=== PATIENT | female | born 1960 | race American Indian/Alaskan Native ===

== ENCOUNTER 2021-01-23 23:41 | Inpatient (IN) | payer SELFPAY ==
[2021-01-24 01:21] LABS: Basophils % (Auto) 0.1 % (0.0-1.8); Hematocrit 43.1 % (30.3-42.9); Hemoglobin 13.7 gm/dl (10.1-14.3); Lymphocytes % (Auto) 8.9 % (13.4-35.0); Mean Corpuscular HGB Conc 32 % (30-34); Mean Corpuscular Volume 101 fl (79-97); Monocytes # (Auto) 0.8 K/mm3 (0.0-0.8); Monocytes % (Auto) 6.7 % (0.0-7.3); Platelet Count 315 K/mm3 (140-440); Red Blood Count 4.27 M/mm3 (3.65-5.03); Red Cell Distribution Width 19.5 % (13.2-15.2)
[2021-01-24] MEDS ORDERED: ONDANSETRON 4 MG/2 ML INJ IV ONE (01:37)
[2021-01-24] MEDS ORDERED: SODIUM CHLORIDE 0.9% 500 ML 500 ML IV ONE (01:37)
[2021-01-24 01:38] LABS: Albumin 4.6 g/dL (3.9-5); Calcium 11.2 mg/dL (8.4-10.2)
--- NOTE | 2021-01-24 01:38 | Emergency Department Report ---
ED N/V/D HPI - General Chief complaint: Nausea/Vomiting/Diarrhea Stated complaint: DRY HEAVING PUI?: No Time Seen by Provider: 01/24/21 01:17 Source: patient Mode of arrival: Ambulatory Limitations: No Limitations - History of Present Illness Initial comments: Patient is a 60-year-old female presents emergency room with complaints of nausea vomiting and dry heaves. Patient states is been going on for 3 weeks. Patient states she is having difficulty holding down food. Patient states she tolerates water. Patient denies abdominal pain. Patient denies blood in her vomitus. Patient denies diarrhea. Patient denies constipation. Patient denies fever and chills. Patient denies chest pain and shortness of breath. Patient states she has not seen her primary care for this. Patient states she has not seen another ER for this. Patient dates she has not gone to urgent care for this. Patient denies recent travel. Patient denies recent international travel. Patient denies exposure to the novel coronavirus. Patient denies sick contacts. Patient denies fever and chills. Patient denies cough. Patient denies diar peterson. Patient denies coming in contact with anybody with symptoms of the novel coronavirus. complaint: nausea, vomiting -: Gradual, week(s) - Related Data Allergies Allergy/AdvReac Type Severity Reaction Status Date / Time codeine Allergy Unknown Verified 01/24/21 00:01 ED Review of Systems ROS: Stated complaint: DRY HEAVING Other details as noted in HPI Constitutional: denies: chills, fever Eyes: denies: eye pain, eye discharge, vision change ENT: denies: ear pain, throat pain Respiratory: denies: cough, shortness of breath, wheezing Cardiovascular: denies: chest pain, palpitations Endocrine: no symptoms reported Gastrointestinal: as per HPI, nausea, vomiting. denies: abdominal pain, diarrhea Genitourinary: denies: urgency, dysuria, discharge Musculoskeletal: denies: back pain, joint swelling, arthralgia Skin: denies: rash, lesions Neurological: denies: headache, weakness, paresthesias Psychiatric: denies: anxiety, depression Hematological/Lymphatic: denies: easy bleeding, easy bruising ED Past Medical Hx - Past Medical History Previous Medical History?: Yes Hx Hypertension: Yes Hx Diabetes: Yes - Surgical History Past Surgical History?: Yes - Family History Family history: no significant - Social History Smoking Status: Never Smoker Substance Use Type: None ED Physical Exam - General Limitations: No Limitations General appearance: alert, in no apparent distress - Head Head exam: Present: atraumatic, normocephalic - Eye Eye exam: Present: normal appearance - ENT ENT exam: Present: mucous membranes moist - Neck Neck exam: Present: normal inspection - Respiratory Respiratory exam: Present: normal lung sounds bilaterally. Absent: respiratory distress - Cardiovascular Cardiovascular Exam: Present: regular rate, normal rhythm. Absent: systolic murmur, diastolic murmur, rubs, gallop - GI/Abdominal GI/Abdominal exam: Present: soft, normal bowel sounds - Extremities Exam Extremities exam: Present: normal inspection - Back Exam Back exam: Present: normal inspection - Neurological Exam Neurological exam: Present: alert, oriented X3 - Psychiatric Psychiatric exam: Present: normal affect, normal mood - Skin Skin exam: Present: warm, dry, intact, normal color. Absent: rash ED Course Vital Signs 01/24/21 01/24/21 01/24/21 01:50 02:01 02:15 Blood Pressure 134/91 134/91 134/91 O2 Sat by Pulse 99 98 100 Oximetry 01/24/21 01/24/21 01/24/21 02:31 02:45 03:01 Blood Pressure 122/83 122/83 128/84 O2 Sat by Pulse 100 100 100 Oximetry 01/24/21 01/24/21 01/24/21 03:15 03:31 03:45 Blood Pressure 128/84 O2 Sat by Pulse 100 98 99 Oximetry 01/24/21 01/24/21 01/24/21 04:01 04:15 04:31 Blood Pressure 128/84 128/84 O2 Sat by Pulse 99 99 99 Oximetry - Reevaluation(s) Reevaluation #1: I discussed all results with patient. I discussed plan of care with patient. Patient agrees with plan of care and admission. Patient to be admitted to the hospitalist service. 01/24/21 02:46 - Consultations Consultation #1: Hospitalist consulted for admission. Hospitalist to admit patient. 01/24/21 02:46 ED Medical Decision Making - Lab Data Result diagrams: 01/24/21 01:02 01/24/21 01:02 - Radiology Data Radiology results: report reviewed CT ABDOMEN AND PELVIS WITHOUT CONTRAST HISTORY: n/v. uti. arf. COMPARISON: None. TECHNIQUE: CT images of the abdomen and pelvis were obtained without administration of intravenous contrast. All CT scans at this location are performed using CT dose reduction for ALARA by means of automated exposure control. FINDINGS: Lungs/bones: Lung bases are clear Abdomen/pelvis: Within limits of a noncontrast examination the liver, spleen, adrenal glands, and upper GI tract appear normal. Postsurgical change and upper GI tract. Small hypodense lesion is seen within the uncinate process of the pancreas measuring 1.7 cm. No pancreatic ductal dilatation. There is a lipoma within the region of the duodenum. Gallbladder appears normal. No definite renal stones are seen. No hydronephrosis. There is mild urinary bladder wall thickening and minimal inflammation in the fundus of the bladder. No free fluid is identified. No acute bone findings are seen. IMPRESSION: 1. No renal or ureteral stones are seen. No hydronephrosis. There is some bladder wall thickening with mild inflammation near the fundus could represent cystitis. Clinical correlation. 2. Hypodense lesion within the pancreatic head/uncinate process measuring 1.7 cm. Further evaluation workup is recommended. 3. Possible lipoma within the distal stomach/duodenal. Postsurgical changes in the upper GI tract. - Medical Decision Making Patient is a 60-year-old female who presents emergency room with complaints of nausea vomiting x3 weeks. Patient unable to hold any food down for 3 weeks and have difficulties with adequate water intake per the patient. Patient had labs done which were remarkable for acute renal failure. Patient has metabolic acidosis. Patient is not in DKA. Patient given IV fluids. Patient given Zofran. CT done because the patient was found to have a UTI and kidney failure. CT shows acute cystitis. Patient admitted to the hospital service for further evaluation and treatment. Patient requires inpatient treatment with a nephrology consult. Critical care time documented due to the multiple reassessments, prolonged time at the bedside, interpretation of diagnostics and labs. - Differential Diagnosis Nausea vomiting, dehydration, electrolyte imbalance, gastroenteritis Critical Care Time: Yes Critical care time in (mins) excluding proc time.: 35 Critical care attestation.: If time is entered above; I have spent that time in minutes in the direct care of this critically ill patient, excluding procedure time. Critical Care Time: 35 minutes ED Disposition Clinical Impression: Acute renal failure Qualifiers: Acute renal failure type: unspecified Qualified Code(s): N17.9 - Acute kidney failure, unspecified Nausea & vomiting Qualifiers: Vomiting type: unspecified Vomiting Intractability: intractable Qualified Code(s): R11.2 - Nausea with vomiting, unspecified Urinary tract infection Qualifiers: Urinary tract infection type: acute cystitis Hematuria presence: with hematuria Qualified Code(s): N30.01 - Acute cystitis with hematuria Disposition: ADMITTED INPATIENT Is pt being admited?: Yes Does the pt Need Aspirin: No Condition: Critical Time of Disposition: 02:45
[2021-01-24] MEDS ORDERED: SODIUM CHLORIDE 0.9% 1000 ML 1,000 ML IV ONE ×2 (01:42→05:04)
[2021-01-24 01:50] LABS: Bilirubin,Urine NEG (Negative); Blood,Urine NEG (Negative); Color,Urine Yellow (Yellow); Urobilinogen,Urine < 2.0 mg/dL (<2.0)
[2021-01-24] MEDS ORDERED: cefTRIAXone/NS 2 GM/100 ML 2 GM/100 ML BAG IV ONE (03:00)
--- NOTE | 2021-01-24 03:42 | Cat Scan Report ---
CT ABDOMEN AND PELVIS WITHOUT CONTRAST HISTORY: n/v. uti. arf. COMPARISON: None. TECHNIQUE: CT images of the abdomen and pelvis were obtained without administration of intravenous co ntrast. All CT scans at this location are performed using CT dose reduction for ALARA by means of au tomated exposure control. FINDINGS: Lungs/bones: Lung bases are clear Abdomen/pelvis: Within limits of a noncontrast examination the liver, spleen, adrenal glands, and up per GI tract appear normal. Postsurgical change and upper GI tract. Small hypodense lesion is seen wi thin the uncinate process of the pancreas measuring 1.7 cm. No pancreatic ductal dilatation. There is a lipoma within the region of the duodenum. Gallbladder appears normal. No definite renal stones are seen. No hydronephrosis. There is mild urinary bladder wall thickening and minimal inflammation in t he fundus of the bladder. No free fluid is identified. No acute bone findings are seen. IMPRESSION: 1. No renal or ureteral stones are seen. No hydronephrosis. There is some bladder wall thickening wit h mild inflammation near the fundus could represent cystitis. Clinical correlation. 2. Hypodense lesion within the pancreatic head/uncinate process measuring 1.7 cm. Further evaluation workup is recommended. 3. Possible lipoma within the distal stomach/duodenal. Postsurgical changes in the upper GI tract. Signer Name: James Brink MD Signed: 01/24/2021 3:37 AM Workstation Name: [id number]
[2021-01-24] MEDS ORDERED: ACETAMINOPHEN 325 MG TAB PO PRN (09:02)
[2021-01-24] MEDS ORDERED: HYDROcodone/ACETAMINOPHEN 5-325 MG TAB PO PRN (09:02)
--- NOTE | 2021-01-24 09:05 | History and Physical Report ---
History of Present Illness Date of examination: 01/24/21 Date of admission: 01/24/21 02:47 Chief complaint: N/V History of present illness: Patient is a 60-year-old female with h/o HTN, DM type presents emergency room with complaints of nausea vomiting and dry heaves has been going on for 3 weeks. Patient states that she is having difficulty holding down food but she can tolerates water. Patient denies abdominal pain. Patient denies bloody vomitus, diarrhea, fever and chills. Patient also denies chest pain and shortness of breath. Patient states that she is fully vaccinated against Covid. CT abdomen in the ER showed possible pancreatic head lesion, patient initiated on IV fluid hydration and admitted for further evaluation and management. Review of System: Constitutional: no fever, no chills, no weight loss Ears, eyes, nose, mouth and throat: no nasal congestion, no nasal discharge, no sinus pressure, no vision change, no red eye. Neck: No neck pain or rigidity. Cardiovascular: No chest pain, no orthopnea, no palpitations, no leg swelling Respiratory: No shortness of breath, no cough, no congestion, no wheezing Gastrointestinal: no abdominal pain, +ve nausea, +ve vomiting Genitourinary : no dysuria, no hematuria Musculoskeletal: no joint swelling or muscle ache Integumentary: no rash, no pruritis Neurological: no parathesias, no numbness, no tingling Endocrine: no cold or heat intolerance, no polyuria or polydipsia Hematologic/Lymphatic: no easy bruising, no easy bleeding, no gland swelling Allergic/Immunologic: no urticaria, no angioedema. Past History Past Medical History: diabetes, hypertension Past Surgical History: Other (Bariatric surgery) Social history: denies: smoking, alcohol abuse Family history: hypertension Medications and Allergies Allergies Allergy/AdvReac Type Severity Reaction Status Date / Time codeine Allergy Unknown Verified 01/24/21 00:01 Penicillins Allergy Nausea Verified 01/24/21 07:55 Home Medications Medication Instructions Recorded Confirmed Last Taken Type AtorvaSTATin [Lipitor] 20 mg PO QHS 01/24/21 01/24/21 01/23/21 History Lisinopril/Hydrochlorothiazide 1 tab PO QDAY 01/24/21 01/24/21 01/23/21 History [Zestoretic 20-25 mg] Pioglitazone [Actos] 15 mg PO QDAY 01/24/21 01/24/21 01/23/21 History Valacyclovir HCl [Valacyclovir] 1,000 mg PO BID 01/24/21 01/24/21 01/23/21 History buPROPion XL [Wellbutrin Xl] 300 mg PO QDAY 01/24/21 01/24/21 01/23/21 History glipiZIDE [Glucotrol] 10 mg PO AC 01/24/21 01/24/21 01/23/21 History Active Meds: Active Medications Acetaminophen (Acetaminophen 325 Mg Tab) 650 mg PO Q4H PRN PRN Reason: Pain MILD(1-3)/Fever >100.5/YEH Hydrocodone Bitart/Acetaminophen (Hydrocodone/Acetaminophen 5-325 Mg Tab) 2 each PO Q6H PRN PRN Reason: Pain, Moderate (4-6) Famotidine (Famotidine 10 Mg Tab) 10 mg PO QDAY NICHOLAS Heparin Sodium (Porcine) (Heparin 5,000 Unit/1 Ml Vial) 5,000 unit SUB-Q Q8HR NICHOLAS Hydralazine HCl (Hydralazine 20 Mg/1 Ml Inj) 5 mg IV Q30MIN PRN PRN Reason: Hypertension Sodium Chloride (Nacl 0.9% 1000 Ml) 1,000 mls @ 100 mls/hr IV DIRECT NICHOLAS Ondansetron HCl (Ondansetron 4 Mg/2 Ml Inj) 4 mg IV Q8H PRN PRN Reason: N/V unrelieved by Reglan Sodium Polystyrene Sulfonate (Sodium Polystyrene 15 Gm/60 Ml Oral Liqd) 30 gm PO ONCE ONE Stop: 01/24/21 09:03 Exam - Physical Exam Narrative exam: GENERAL: well-developed and well-nourished morbidly obese -[place] female lying on bed appeared to be in no discomfort. HEENT: Normocephalic. Atraumatic. No conjunctival congestion or icterus. Patient has moist mucous membranes. NECK: Supple. Trachea midline. CHEST/LUNGS: Clear to auscultated bilaterally, breathing nonlabored. No wheezes crackles or rhonchi. HEART/CARDIOVASCULAR: Regular in rate and rhythm. S1 and S2 positive. ABDOMEN: Abdomen is soft, nontender. Patient has normal bowel sounds. SKIN: There is no rash. Warm and dry. NEURO: No focal motor deficit. Follows command. MUSCULOSKELETAL: No joint effusion or tenderness. EXTRIMITY: No edema, no cyanosis or clubbing. PSYCH: Cooperative. - Constitutional Vitals: Temp Pulse Resp BP Pulse Ox 98.6 F 93 H 15 123/82 100 01/24/21 07:49 01/24/21 07:45 01/24/21 07:45 01/24/21 07:45 01/24/21 07:56 Results - Labs CBC & Chem 7: 01/24/21 01:02 01/25/21 07:14 Labs: Abnormal lab results 01/24/21 01/24/21 01/24/21 Range/Units 01:02 01:02 Unknown WBC 11.7 H (4.5-11.0) K/mm3 Hct 43.1 H (30.3-42.9) % MCV 101 H (79-97) fl RDW 19.5 H (13.2-15.2) % Lymph % (Auto) 8.9 L (13.4-35.0) % Lymph # (Auto) 1.0 L (1.2-5.4) K/mm3 Seg Neutrophils % 84.3 H (40.0-70.0) % Seg Neutrophils # 9.8 H (1.8-7.7) K/mm3 Potassium 5.2 H (3.6-5.0) mmol/L Carbon Dioxide 17 L (22-30) mmol/L BUN 59 H (7-17) mg/dL Creatinine 4.3 H (0.6-1.2) mg/dL Glucose 222 H (65-100) mg/dL Calcium 11.2 H (8.4-10.2) mg/dL Total Protein 8.3 H (6.3-8.2) g/dL Lipase 68 H (13-60) units/L Urine WBC (Auto) 14.0 H (0.0-6.0) /HPF U Epithel Cells (Auto) 28.0 H (0-13.0) /HPF - Imaging and Cardiology CT scan - abdomen: report reviewed (Positive for pancreatic head lesion) Assessment and Plan Intractable nausea and vomiting Pancreatic head lesion/ mass Leukocytosis with sepsis Urinary tract infection KYLE, vasomotor nephropathy hyperkalemia Morbid obesity, due to excess calorie DVT prophylaxis --Admit patient to [facility] --Placed on IV fluid hydration, monitor renal function, order for Kayexalate -Consult nephrology, ordered morning labs --Consult GI for possible pancreatic head lesion -As needed pain meds and antiemetics -Dietary recommendation --Heparin for DVT prophylaxis
[2021-01-24] MEDS ORDERED: hydrALAZINE 20 MG/1 ML INJ IV PRN (09:11)
[2021-01-24] MEDS ORDERED: FAMOTIDINE 10 MG TAB PO SCH (10:00)
[2021-01-24] MEDS ORDERED: SODIUM POLYSTYRENE 15 GM/60 ML ORAL LIQD PO ONE (10:00)
[2021-01-24] MEDS ORDERED: SODIUM CHLORIDE 0.9% 1000 ML 1,000 ML IV SCH (10:00)
[2021-01-24] MEDS: ONDANSETRON 4 MG/2 ML INJ IV PRN ×2 (10:28→18:44)
--- NOTE | 2021-01-24 13:13 | Consultation ---
History of Present Illness - Reason for Consult Consult date: 01/24/21 acute renal failure, hyperkalemia, metabolic acidosis - History of Present Illness The patient is a 60 YO female with history significant for Morbid Obesity, HTN and DM who presented to [facility] ED 01/24 with complaints of nausea, vomiting and dry heaves for the past 3 weeks. Patient states that she is having difficulty holding down food but she can tolerate water. Patient denies abdominal pain, diarrhea, hemetemesis, fever, chills, dysuria, hematuria, chest pain and shortness of breath. Patient states that she is fully vaccinated against Covid- 19. Labs significant for Creat 4.3, BUN 59, K 5.2, bicarb 17 and Calcium 11.2. Nephrology was consulted for further evaluation and treatment of KYLE. Past History Past Medical History: other (See HPI.) Medications and Allergies Allergies Allergy/AdvReac Type Severity Reaction Status Date / Time codeine Allergy Unknown Verified 01/24/21 00:01 Penicillins Allergy Nausea Verified 01/24/21 07:55 Home Medications Medication Instructions Recorded Confirmed Last Taken Type AtorvaSTATin [Lipitor] 20 mg PO QHS 01/24/21 01/24/21 01/23/21 History Lisinopril/Hydrochlorothiazide 1 tab PO QDAY 01/24/21 01/24/21 01/23/21 History [Zestoretic 20-25 mg] Pioglitazone [Actos] 15 mg PO QDAY 01/24/21 01/24/21 01/23/21 History Valacyclovir HCl [Valacyclovir] 1,000 mg PO BID 01/24/21 01/24/21 01/23/21 History buPROPion XL [Wellbutrin Xl] 300 mg PO QDAY 01/24/21 01/24/21 01/23/21 History glipiZIDE [Glucotrol] 10 mg PO AC 01/24/21 01/24/21 01/23/21 History Active Meds: Active Medications Acetaminophen (Acetaminophen 325 Mg Tab) 650 mg PO Q4H PRN PRN Reason: Pain MILD(1-3)/Fever >100.5/YEH Hydrocodone Bitart/Acetaminophen (Hydrocodone/Acetaminophen 5-325 Mg Tab) 2 each PO Q6H PRN PRN Reason: Pain, Moderate (4-6) Famotidine (Famotidine 10 Mg Tab) 10 mg PO QDAY [facility] Last Admin: 01/24/21 10:28 Dose: 10 mg Documented by: Heparin Sodium (Porcine) (Heparin 5,000 Unit/1 Ml Vial) 5,000 unit SUB-Q Q8HR [facility] Hydralazine HCl (Hydralazine 20 Mg/1 Ml Inj) 5 mg IV Q30MIN PRN PRN Reason: Hypertension Sodium Chloride (Nacl 0.9% 1000 Ml) 1,000 mls @ 100 mls/hr IV DIRECT NICHOLAS Last Admin: 01/24/21 10: Dose: 100 mls/hr Documented by: Ondansetron HCl (Ondansetron 4 Mg/2 Ml Inj) 4 mg IV Q8H PRN PRN Reason: Nausea And Vomiting Last Admin: 01/24/21 10: Dose: 4 mg Documented by: Review of Systems All systems: negative Exam - Vital Signs Vital signs: Vital Signs BP Pulse Ox 134/91 99 01/24/21 01:50 01/24/21 01:50 Results - Lab Results 01/24/21 01:02 01/25/21 07:14 Most recent lab results Calcium 11.2 mg/dL (8.4-10.2) H 01/24/21 01:02 Assessment and Plan 1. Acute kidney injury: Vasomotor KYLE in the setting of volume depletion. Urine studies and Renal US ordered. Continue IV fluids. Monitor renal function. Avoid nephrotoxic agents. Meds dosage based on GFR. 2. FEN: Hypernatremia, Kayexalate, monitor. Anion-gap metabolic acidosis, 2/2 KYLE, IV fluids, monitor. Monitor lytes and volume status. 3. Nausea and vomiting: CT abdomen showed possible cystitis. Per primary. 4. UTI: Ceftriaxone. 5. DM-2. 6. HTN. 7. Pancreatic head lesion/ mass. Subjective: Patient was seen and examined at the bedside. Examination: General appearance: well-developed, obese, appears stated age, no distress HEENT: atraumatic Neck: trachea midline Respiratory: ctab Heart: S1S2, regular, no murmur Abdomen: soft, bowel sounds heard, NT Integumentary: no rash Neurologic: AO, able to move extremities Ext: no edema
[2021-01-24] MEDS: HEPARIN 5,000 UNIT/1 ML VIAL SUB-Q SCH ×2 (13:28→22:06)
[2021-01-24] MEDS: MORPHINE 2 MG/1 ML INJ IV PRN ×2 (13:28→17:47)
--- NOTE | 2021-01-24 15:11 | Consultation ---
History of Present Illness - Reason for Consult Consult date: 01/24/21 Pancreatic head lesion Requesting physician: JOSE KUMARI - History of Present Illness Ms. Suh is an unemployed 60-year-old woman who presented to the emergency room with a 3-week history of nausea and vomiting with dry heaving with p.o. intake. She states that when she tries to eat, she basically has saliva coming up. She denies abdominal pain. Her bowel movements are regular on a q. OD basis without any change. She denies GI bleeding. She denies prior similar symptoms. There is no significant history of weight loss. There is no family history of pancreatic cancer. She denies significant alcohol abuse. Medications reviewed. Past History Past Medical History: diabetes, hypertension, other (See HPI.) Past Surgical History: Other (Gastric bypass - 1993) Social history: denies: smoking, alcohol abuse Family history: hypertension Medications and Allergies Allergies Allergy/AdvReac Type Severity Reaction Status Date / Time codeine Allergy Unknown Verified 01/24/21 00:01 Penicillins Allergy Nausea Verified 01/24/21 07:55 Active Meds: Active Medications Acetaminophen (Acetaminophen 325 Mg Tab) 650 mg PO Q4H PRN PRN Reason: Pain MILD(1-3)/Fever >100.5/YEH Hydrocodone Bitart/Acetaminophen (Hydrocodone/Acetaminophen 5-325 Mg Tab) 2 each PO Q6H PRN PRN Reason: Pain, Moderate (4-6) Famotidine (Famotidine 10 Mg Tab) 10 mg PO QDAY NICHOLAS Last Admin: 01/24/21 10:28 Dose: 10 mg Documented by: Heparin Sodium (Porcine) (Heparin 5,000 Unit/1 Ml Vial) 5,000 unit SUB-Q Q8HR NICHOLAS Last Admin: 01/24/21 13:28 Dose: 5,000 unit Documented by: Hydralazine HCl (Hydralazine 20 Mg/1 Ml Inj) 5 mg IV Q30MIN PRN PRN Reason: Hypertension Sodium Chloride (Nacl 0.9% 1000 Ml) 1,000 mls @ 100 mls/hr IV DIRECT NICHOLAS Last Admin: 01/24/21 10:29 Dose: 100 mls/hr Documented by: Insulin Human Regular (Insulin Regular, Human 100 Units/1 Ml) 0 units SUB-Q ACHS NICHOLAS; Protocol Metoclopramide HCl (Metoclopramide 10 Mg/2 Ml Inj) 10 mg IV Q6H PRN PRN Reason: Nausea And Vomiting Morphine Sulfate (Morphine 2 Mg/1 Ml Inj) 1 mg IV Q3H PRN PRN Reason: Pain, Moderate (4-6) Last Admin: 01/24/21 13:28 Dose: 1 mg Documented by: Ondansetron HCl (Ondansetron 4 Mg/2 Ml Inj) 4 mg IV Q8H PRN PRN Reason: Nausea And Vomiting Last Admin: 01/24/21 10:28 Dose: 4 mg Documented by: Review of Systems All systems: negative (as per HPI) Exam - Constitutional Vitals: Temp Pulse Resp BP Pulse Ox 98.6 F 90 17 131/80 100 01/24/21 07:49 01/24/21 09:31 01/24/21 09:31 01/24/21 09:31 01/24/21 09:31 General appearance: Present: no acute distress, other (fatigued) - EENT Eyes: Present: PERRL, EOM intact ENT: hearing intact - Respiratory Respiratory effort: normal Respiratory: bilateral: CTA - Cardiovascular Rhythm: regular Heart Sounds: Present: S1 & S2 - Extremities Extremities: No edema - Abdominal General gastrointestinal: Present: soft, non-tender Results - Labs CBC & Chem 7: 01/24/21 01:02 01/24/21 01:02 Labs: Abnormal lab results 01/24/21 01/24/21 01/24/21 Range/Units 01:02 01:02 12:17 WBC 11.7 H (4.5-11.0) K/mm3 Hct 43.1 H (30.3-42.9) % MCV 101 H (79-97) fl RDW 19.5 H (13.2-15.2) % Lymph % (Auto) 8.9 L (13.4-35.0) % Lymph # (Auto) 1.0 L (1.2-5.4) K/mm3 Seg Neutrophils % 84.3 H (40.0-70.0) % Seg Neutrophils # 9.8 H (1.8-7.7) K/mm3 Potassium 5.2 H (3.6-5.0) mmol/L Carbon Dioxide 17 L (22-30) mmol/L BUN 59 H (7-17) mg/dL Creatinine 4.3 H (0.6-1.2) mg/dL Glucose 222 H (65-100) mg/dL POC Glucose 136 H (70-105) mg/dL Calcium 11.2 H (8.4-10.2) mg/dL Total Protein 8.3 H (6.3-8.2) g/dL Lipase 68 H (13-60) units/L Urine WBC (Auto) (0.0-6.0) /HPF U Epithel Cells (Auto) (0-13.0) /HPF 01/24/21 Range/Units Unknown WBC (4.5-11.0) K/mm3 Hct (30.3-42.9) % MCV (79-97) fl RDW (13.2-15.2) % Lymph % (Auto) (13.4-35.0) % Lymph # (Auto) (1.2-5.4) K/mm3 Seg Neutrophils % (40.0-70.0) % Seg Neutrophils # (1.8-7.7) K/mm3 Potassium (3.6-5.0) mmol/L Carbon Dioxide (22-30) mmol/L BUN (7-17) mg/dL Creatinine (0.6-1.2) mg/dL Glucose (65-100) mg/dL POC Glucose (70-105) mg/dL Calcium (8.4-10.2) mg/dL Total Protein (6.3-8.2) g/dL Lipase (13-60) units/L Urine WBC (Auto) 14.0 H (0.0-6.0) /HPF U Epithel Cells (Auto) 28.0 H (0-13.0) /HPF - Imaging and Cardiology CT scan - abdomen: report reviewed (1.7 cm hypodense lesion in uncinate process of pancreas) Assessment and Plan 1. Pancreatic head lesion -etiology unclear. Need to exclude neoplasm. It could also be a pancreatic cyst or some other lesion. -Obtain MRI -Check CA 199 level 2. Nausea/vomiting/dry heaves -etiology unclear. Patient has had gastric bypass. Would treat empirically for peptic ulcer disease. Patient may well have biliary tract disease and MRI of gallbladder should show stones or sludge. Symptoms could also be due to pancreatic head lesion though that is less likely. -Empiric proton pump inhibitors -Symptomatic treatment -Follow-up on MRI and see if gallbladder shows any stones -If all negative, and symptoms persist, may do upper endoscopy.
[2021-01-24 15:13] LABS: Calcium 9.5 mg/dL (8.4-10.2)
--- NOTE | 2021-01-24 17:30 | Magnetic Resonance Report ---
MRI ABDOMEN WITHOUT CONTRAST INDICATION / CLINICAL INFORMATION: Pancreatic head lesion, N/V. TECHNIQUE: Multiplanar, multisequence series were obtained through the abdomen. COMPARISON: CT abdomen without contrast earlier today. FINDINGS: LOWER CHEST: No significant abnormality. LIVER: No significant abnormality. GALLBLADDER: No significant abnormality. BILE DUCTS: No significant abnormality. PANCREAS: Within the uncinate process, there is a somewhat lobulated T2 hyperintense lesion which derek sures 2.1 x 1.6 cm. There is no definite communication with the main pancreatic duct though this is a djacent to the duct. There is no pancreatic duct dilatation and no additional pancreatic lesions are seen. There is no significant pancreatic parenchymal atrophy. SPLEEN: No significant abnormality. ADRENALS: No significant abnormality. RIGHT KIDNEY / URETER: No significant abnormality. LEFT KIDNEY / URETER: No significant abnormality. STOMACH / VISUALIZED BOWEL: No significant abnormality. PERITONEUM: No free fluid. No free air. No fluid collection. LYMPH NODES: No significant adenopathy. AORTA / ARTERIES: No significant abnormality. IVC / VEINS: No significant abnormality. ADDITIONAL FINDINGS: None. SKELETAL SYSTEM: No significant abnormality. IMPRESSION: 1. 2.1 cm cystic lesion in the uncinate process of the pancreas. Given its size, guidelines recommend repeat imaging every 6 months for 2 years and then every year for 2 years to determine stability ove r time. Signer Name: Chapin Sal MD Signed: 01/24/2021 5:25 PM Workstation Name: [id number]
[2021-01-24] MEDS: INSULIN REGULAR, HUMAN 100 UNITS/1 ML SUB-Q SCH ×2 (17:47→22:06)
[2021-01-24] MEDS: PANTOPRAZOLE 40 MG INJ IV SCH (17:48)
[2021-01-24] MEDS: SODIUM BICARBONATE 75 MEQ in WATER FOR INJECTION (PF) 1,000 ML IV SCH (23:40)
[2021-01-25] MEDS: HEPARIN 5,000 UNIT/1 ML VIAL SUB-Q SCH ×3 (05:51→22:26)
[2021-01-25] MEDS: MORPHINE 2 MG/1 ML INJ IV PRN (07:34)
[2021-01-25] MEDS: ONDANSETRON 4 MG/2 ML INJ IV PRN ×3 (07:34→22:27)
[2021-01-25 08:13] LABS: Calcium 9.9 mg/dL (8.4-10.2)
[2021-01-25] MEDS: INSULIN REGULAR, HUMAN 100 UNITS/1 ML SUB-Q SCH ×4 (09:41→22:27)
--- NOTE | 2021-01-25 10:35 | Progress Note ---
Assessment and Plan 1. Acute kidney injury: Vasomotor KYLE in the setting of volume depletion. Imaging negative for hydro. Urine studies ordered. Continue IV fluids. Monitor renal function. Creatinine level improving. Avoid nephrotoxic agents. Meds dosage based on GFR. 2. FEN: Hypernatremia, improved, monitor. Anion-gap metabolic acidosis, 2/2 KYLE, Sod bicarb drip, monitor. Monitor lytes and volume status. 3. Nausea and vomiting: CT abdomen showed possible cystitis. Per primary. 4. UTI: Ceftriaxone. 5. DM-2. 6. HTN. 7. Pancreatic head cystic lesion/ mass. Subjective: Patient was seen and examined at the bedside. N & V improving. Examination: General appearance: well-developed, obese, appears stated age, no distress HEENT: atraumatic Neck: trachea midline Respiratory: ctab Heart: S1S2, regular, no murmur Abdomen: soft, bowel sounds heard, NT Integumentary: no rash Neurologic: AO, able to move extremities Ext: no edema Subjective Date of service: 01/25/21 Objective - Lab 01/24/21 01:02 01/25/21 07:14 Most recent lab results Calcium 9.9 mg/dL (8.4-10.2) 01/25/21 07:14 Medications & Allergies - Medications Allergies/Adverse Reactions: Allergies codeine Allergy (Verified 01/24/21 00:01) Unknown Penicillins Allergy (Verified 01/24/21 07:55) Nausea Home Medications: Home Medications Medication Instructions Recorded Confirmed Last Taken Type AtorvaSTATin [Lipitor] 20 mg PO QHS 01/24/21 01/24/21 01/23/21 History Lisinopril/Hydrochlorothiazide 1 tab PO QDAY 01/24/21 01/24/21 01/23/21 History [Zestoretic 20-25 mg] Pioglitazone [Actos] 15 mg PO QDAY 01/24/21 01/24/21 01/23/21 History Valacyclovir HCl [Valacyclovir] 1,000 mg PO BID 01/24/21 01/24/21 01/23/21 History buPROPion XL [Wellbutrin Xl] 300 mg PO QDAY 01/24/21 01/24/21 01/23/21 History glipiZIDE [Glucotrol] 10 mg PO AC 01/24/21 01/24/21 01/23/21 History Active Medications: Generic Name Dose Route Start Last Admin Trade Name Jay PRN Reason Stop Dose Admin Acetaminophen 650 mg 01/24/21 09:02 Acetaminophen 325 Mg Tab PO Q4H PRN Pain MILD(1-3)/Fever >100.5/YEH Hydrocodone Bitart/Acetaminophen 2 each 01/24/21 09:02 Hydrocodone/Acetaminophen 5-325 Mg Tab PO Q6H PRN Pain, Moderate (4-6) Heparin Sodium (Porcine) 5,000 unit 01/24/21 14:00 01/25/21 05:51 Heparin 5,000 Unit/1 Ml Vial SUB-Q 5,000 unit Q8HR NICHOLAS Administration Hydralazine HCl 5 mg 01/24/21 09:11 Hydralazine 20 Mg/1 Ml Inj IV Q30MIN PRN Hypertension Sodium Bicarbonate 75 meq/ 1,075 mls @ 100 mls/hr 01/24/21 19:00 01/24/21 23:40 Sterile Water IV 100 mls/hr DIRECT NICHOLAS Administration Insulin Human Regular 0 units 01/24/21 16:30 01/25/21 09:41 Insulin Regular, Human 100 Units/1 Ml SUB-Q Not Given ACHS [facility] Protocol Metoclopramide HCl 5 mg 01/24/21 15:00 Metoclopramide 10 Mg/2 Ml Inj IV Q6H PRN Nausea And Vomiting Morphine Sulfate 1 mg 01/24/21 13:30 01/25/21 07:34 Morphine 2 Mg/1 Ml Inj IV 1 mg Q3H PRN Administration Pain, Moderate (4-6) Ondansetron HCl 4 mg 01/24/21 09:02 01/25/21 07:34 Ondansetron 4 Mg/2 Ml Inj IV 4 mg Q8H PRN Administration Nausea And Vomiting Pantoprazole Sodium 40 mg 01/24/21 17:00 01/24/21 17:48 Pantoprazole 40 Mg Inj IV 40 mg QDAY NICHOLAS Administration
--- NOTE | 2021-01-25 10:56 | Progress Note ---
Assessment and Plan 1. Pancreatic head lesion -etiology unclear. MRI c/w cyst. - follow up MRI in 6 months to ensure stability - follow up on CA 199 level 2. Nausea/vomiting/dry heaves -Improved. Etiology unclear. Patient has had gastric bypass. Would treat empirically for peptic ulcer disease. MRI of gallbladder should shows no stones or sludge. -Empiric proton pump inhibitors -Symptomatic treatment -If symptoms persist, may do upper endoscopy or get HIDA with CCK. Subjective Date of service: 01/25/21 Interval history: Pt feels somewhat better. Still has mild nausea. Objective - Constitutional General appearance: Present: no acute distress - EENT Eyes: PERRL, EOM intact ENT: hearing intact - Respiratory Respiratory effort: normal - Gastrointestinal General gastrointestinal: Present: soft, non-tender - Labs CBC & Chem 7: 01/24/21 01:02 01/25/21 07:14 Labs: Abnormal lab results 01/24/21 01/24/21 01/24/21 Range/Units 12:17 13:16 15:43 Chloride 107.5 H (98-107) mmol/L Carbon Dioxide 16 L (22-30) mmol/L BUN 55 H (7-17) mg/dL Creatinine 3.8 H (0.6-1.2) mg/dL Glucose 168 H (65-100) mg/dL POC Glucose 136 H 124 H (70-105) mg/dL 01/25/21 01/25/21 01/25/21 Range/Units 07:12 07:14 10:37 Chloride (98-107) mmol/L Carbon Dioxide 19 L (22-30) mmol/L BUN 44 H (7-17) mg/dL Creatinine 3.1 H (0.6-1.2) mg/dL Glucose 143 H (65-100) mg/dL POC Glucose 116 H 117 H (70-105) mg/dL Medications & Allergies - Medications Allergies/Adverse Reactions: Allergies codeine Allergy (Verified 01/24/21 00:01) Unknown Penicillins Allergy (Verified 01/24/21 07:55) Nausea Home Medications: Home Medications Medication Instructions Recorded Confirmed Last Taken Type AtorvaSTATin [Lipitor] 20 mg PO QHS 01/24/21 01/24/21 01/23/21 History Lisinopril/Hydrochlorothiazide 1 tab PO QDAY 01/24/21 01/24/21 01/23/21 History [Zestoretic 20-25 mg] Pioglitazone [Actos] 15 mg PO QDAY 01/24/21 01/24/21 01/23/21 History Valacyclovir HCl [Valacyclovir] 1,000 mg PO BID 01/24/21 01/24/21 01/23/21 His tory buPROPion XL [Wellbutrin Xl] 300 mg PO QDAY 01/24/21 01/24/21 01/23/21 History glipiZIDE [Glucotrol] 10 mg PO AC 01/24/21 01/24/21 01/23/21 History Active Medications: Generic Name Dose Route Start Last Admin Trade Name Freq PRN Reason Stop Dose Admin Acetaminophen 650 mg 01/24/21 09:02 Acetaminophen 325 Mg Tab PO Q4H PRN Pain MILD(1-3)/Fever >100.5/YEH Hydrocodone Bitart/Acetaminophen 2 each 01/24/21 09:02 Hydrocodone/Acetaminophen 5-325 Mg Tab PO Q6H PRN Pain, Moderate (4-6) Heparin Sodium (Porcine) 5,000 unit 01/24/21 14:00 01/25/21 05:51 Heparin 5,000 Unit/1 Ml Vial SUB-Q 5,000 unit Q8HR NICHOLAS Administration Hydralazine HCl 5 mg 01/24/21 09:11 Hydralazine 20 Mg/1 Ml Inj IV Q30MIN PRN Hypertension Sodium Bicarbonate 75 meq/ 1,075 mls @ 100 mls/hr 01/24/21 19:00 01/24/21 23:40 Sterile Water IV 100 mls/hr DIRECT NICHOLAS Administration Insulin Human Regular 0 units 01/24/21 16:30 01/25/21 09:41 Insulin Regular, Human 100 Units/1 Ml SUB-Q Not Given ACHS [facility] Protocol Metoclopramide HCl 5 mg 01/24/21 15:00 Metoclopramide 10 Mg/2 Ml Inj IV Q6H PRN Nausea And Vomiting Morphine Sulfate 1 mg 01/24/21 13:30 01/25/21 07:34 Morphine 2 Mg/1 Ml Inj IV 1 mg Q3H PRN Administration Pain, Moderate (4-6) Ondansetron HCl 4 mg 01/24/21 09:02 01/25/21 07:34 Ondansetron 4 Mg/2 Ml Inj IV 4 mg Q8H PRN Administration Nausea And Vomiting Pantoprazole Sodium 40 mg 01/24/21 17:00 01/24/21 17:48 Pantoprazole 40 Mg Inj IV 40 mg QDAY NICHOLAS Administration
--- NOTE | 2021-01-25 13:35 | Progress Note ---
Assessment and Plan --Intractable nausea and vomiting Etiology unclear. Patient has had gastric bypass. Would treat empirically for peptic ulcer disease. -As needed pain meds and antiemetics --Pancreatic head lesion/ mass GI consulted in order for MRI abdomen --Leukocytosis with sepsis --Urinary tract infection follow blood culture, continue empiric antibiotics --KYLE, vasomotor nephropathy, Cr 4.3 on admission Placed on bicarbonate drip, nephrology consulted, follow BMP --hyperkalemia Potassium level will improved when renal function improves --morbid obesity, due to excess calorie Dietary recommendation when clinically more stable --DVT prophylaxis Heparin for DVT prophylaxis Daily clinical course: 01/25/21; start on clear liquid diet, renal function slightly improved, initiated on bicarbonate drip. Follow [facility] Subjective Date of service: 01/25/21 Interval history: Patient seen and examined. Medical records and medication list reviewed. No acute event overnight noted by the RN. Patient patient continued to complains of nausea and vomiting, renal function slightly improved Discussed plan of care at bedside with patient. Objective - Exam Narrative Exam: GENERAL: well-developed and well-nourished morbidly obese -[place] female lying on bed appeared to be in mild discomfort. HEENT: Normocephalic. Atraumatic. No conjunctival congestion or icterus. Pa tient has moist mucous membranes. NECK: Supple. Trachea midline. CHEST/LUNGS: Clear to auscultated bilaterally, breathing nonlabored. No wheezes crackles or rhonchi. HEART/CARDIOVASCULAR: Regular in rate and rhythm. S1 and S2 positive. ABDOMEN: Abdomen is soft, nontender. Patient has normal bowel sounds. SKIN: There is no rash. Warm and dry. NEURO: No focal motor deficit. Follows command. MUSCULOSKELETAL: No joint effusion or tenderness. EXTRIMITY: No edema, no cyanosis or clubbing. PSYCH: Cooperative. - Constitutional Vitals: Vital Signs - 12hr 01/25/21 01/25/21 05:08 11:11 Temperature 97.9 F 98.0 F Pulse Rate 106 H 102 H Respiratory 18 18 Rate Blood Pressure 141/89 139/91 O2 Sat by Pulse 99 99 Oximetry - Labs CBC & Chem 7: 01/24/21 01:02 01/28/21 10:32 Labs: Abnormal lab results 01/24/21 01/24/21 01/25/21 Range/Units 13:16 15:43 07:12 Chloride 107.5 H (98-107) mmol/L Carbon Dioxide 16 L (22-30) mmol/L BUN 55 H (7-17) mg/dL Creatinine 3.8 H (0.6-1.2) mg/dL Glucose 168 H (65-100) mg/dL POC Glucose 124 H 116 H (70-105) mg/dL 01/25/21 01/25/21 Range/Units 07:14 10:37 Chloride (98-107) mmol/L Carbon Dioxide 19 L (22-30) mmol/L BUN 44 H (7-17) mg/dL Creatinine 3.1 H (0.6-1.2) mg/dL Glucose 143 H (65-100) mg/dL POC Glucose 117 H (70-105) mg/dL
[2021-01-25] MEDS: PANTOPRAZOLE 40 MG INJ IV SCH (15:12)
[2021-01-25] MEDS: METOCLOPRAMIDE 10 MG/2 ML INJ IV PRN (18:21)
[2021-01-25] MEDS: SODIUM BICARBONATE 75 MEQ in WATER FOR INJECTION (PF) 1,000 ML IV SCH (18:21)
[2021-01-26] MEDS: METOCLOPRAMIDE 10 MG/2 ML INJ IV PRN ×3 (03:09→21:39)
[2021-01-26 04:15] LABS: Creatinine,Urine 187.7 mg/dL (0.1-20.0); Protein/Creatinine Ratio,Urine 0.1
[2021-01-26 05:18] LABS: Calcium 8.8 mg/dL (8.4-10.2)
[2021-01-26] MEDS: HEPARIN 5,000 UNIT/1 ML VIAL SUB-Q SCH ×3 (06:12→21:07)
[2021-01-26] MEDS: INSULIN REGULAR, HUMAN 100 UNITS/1 ML SUB-Q SCH ×4 (08:03→22:09)
[2021-01-26] MEDS: SODIUM BICARBONATE 75 MEQ in WATER FOR INJECTION (PF) 1,000 ML IV SCH ×2 (10:00→23:17)
--- NOTE | 2021-01-26 10:46 | Progress Note ---
Assessment and Plan 1. Acute kidney injury: Vasomotor KYLE in the setting of volume depletion. Imaging negative for hydro. Urine studies ordered. Continue IV fluids. Monitor renal function. Creatinine level improving. Avoid nephrotoxic agents. Meds dosage based on GFR. 2. FEN: Hypernatremia, improved, monitor. Anion-gap metabolic acidosis, 2/2 KYLE, Sod bicarb drip, monitor. Replete K. Monitor lytes and volume status. 3. Nausea and vomiting: CT abdomen showed possible cystitis. Per primary. 4. UTI: S/p abx. 5. DM-2. 6. HTN. 7. Pancreatic head cystic lesion/ mass. Subjective: Patient was seen and examined at the bedside. Doing ok. Examination: General appearance: well-developed, obese, appears stated age, no distress HEENT: atraumatic Neck: trachea midline Respiratory: ctab Heart: S1S2, regular, no murmur Abdomen: soft, bowel sounds heard, NT Integumentary: no rash Neurologic: AO, able to move extremities Ext: no edema Subjective Date of service: 01/26/21 Objective - Vital Signs Vital signs: Vital Signs - 12hr 01/25/21 01/26/21 22:47 04:47 Temperature 97.9 F 97.8 F Pulse Rate 88 87 Respiratory 18 18 Rate Blood Pressure 133/92 135/87 O2 Sat by Pulse 98 96 Oximetry - Lab 01/24/21 01:02 01/27/21 07:55 Most recent lab results Calcium 8.8 mg/dL (8.4-10.2) 01/26/21 04:00 Urine Creatinine 187.7 mg/dL (0.1-20.0) H 01/26/21 03:15 Urine Sodium 44 mmol/L 01/26/21 03:15 Urine Total Protein 18 mg/dL (5-11.8) H 01/26/21 03:15 Medications & Allergies - Medications Allergies/Adverse Reactions: Allergies codeine Allergy (Verified 01/24/21 00:01) Unknown Penicillins Allergy (Verified 01/24/21 07:55) Nausea Home Medications: Home Medications Medication Instructions Recorded Confirmed Last Taken Type AtorvaSTATin [Lipitor] 20 mg PO QHS 01/24/21 01/24/21 01/23/21 History Lisinopril/Hydrochlorothiazide 1 tab PO QDAY 01/24/21 01/24/2101/23/21 History [Zestoretic 20-25 mg] Pioglitazone [Actos] 15 mg PO QDAY 01/24/21 01/24/21 01/23/21 History Valacyclovir HCl [Valacyclovir] 1,000 mg PO BID 01/24/21 01/24/21 01/23/21 History buPROPion XL [Wellbutrin Xl] 300 mg PO QDAY 01/24/21 01/24/21 01/23/21 History glipiZIDE [Glucotrol] 10 mg PO AC 01/24/21 01/24/21 01/23/21 History Active Medications: Generic Name Dose Route Start Last Admin Trade Name Freq PRN Reason Stop Dose Admin Acetaminophen 650 mg 01/24/21 09:02 Acetaminophen 325 Mg Tab PO Q4H PRN Pain MILD(1-3)/Fever >100.5/YEH Hydrocodone Bitart/Acetaminophen 2 each 01/24/21 09:02 01/25/21 18:20 Hydrocodone/Acetaminophen 5-325 Mg Tab PO 2 each Q6H PRN Administration Pain, Moderate (4-6) Heparin Sodium (Porcine) 5,000 unit 01/24/21 14:00 01/26/21 06:12 Heparin 5,000 Unit/1 Ml Vial SUB-Q 5,000 unit Q8HR NICHOLAS Administration Hydralazine HCl 5 mg 01/24/21 09:11 Hydralazine 20 Mg/1 Ml Inj IV Q30MIN PRN Hypertension Sodium Bicarbonate 75 meq/ 1,075 mls @ 100 mls/hr 01/24/21 19:00 01/25/21 18:21 Sterile Water IV 100 mls/hr DIRECT NICHOLAS Administration Insulin Human Regular 0 units 01/24/21 16:30 01/25/21 22:27 Insulin Regular, Human 100 Units/1 Ml SUB-Q Not Given ACHS [facility] Protocol Metoclopramide HCl 5 mg 01/24/21 15:00 01/26/21 03:09 Metoclopramide 10 Mg/2 Ml Inj IV 5 mg Q6H PRN Administration Nausea And Vomiting Morphine Sulfate 1 mg 01/24/21 13:30 01/25/21 07:34 Morphine 2 Mg/1 Ml Inj IV 1 mg Q3H PRN Administration Pain, Moderate (4-6) Ondansetron HCl 4 mg 01/24/21 09:02 01/25/21 22:27 Ondansetron 4 Mg/2 Ml Inj IV 4 mg Q8H PRN Administration Nausea And Vomiting Pantoprazole Sodium 40 mg 01/24/21 17:00 01/25/21 15:12 Pantoprazole 40 Mg Inj IV 40 mg QDAY NICHOLAS Administration
--- NOTE | 2021-01-26 11:02 | Gastroenterology Progress Note ---
Assessment and Plan - Patient Problems (1) Pancreas cyst Current Visit: Yes Status: Acute Plan to address problem: -The patient will need surveillance MRIs as an outpatient (or, EUS with FNA for staging; both acceptable). - No further inpatient workup. (2) Nausea & vomiting Current Visit: Yes Status: Acute Qualifiers: Vomiting type: unspecified Vomiting Intractability: intractable Qualified Code(s): R11.2 - Nausea with vomiting, unspecified Plan to address problem: - Given the chronic DM, this may be mild gastroparesis; also possible is mild pancreatitis from compression from the cyst. No signs of obstruction on CT scan, but partial SBO/GOO from surgical adhesions. - We will attempt to advance the diet, and check a Hgb a1C, and repeat lipase. - Upper endoscopy if fails to advance diet. - Continue Protonix IV for now. Subjective Date of service: 01/26/21 Principal diagnosis: N/V Interval history: The patient is tolerating some sips of clears. No BM today. She has no CP or SOB. She denies focal abdominal pain, and has no fevers. Objective - Constitutional Vitals: Temp Pulse Resp BP Pulse Ox 97.8 F 87 18 135/87 96 01/26/21 04:47 01/26/21 04:47 01/26/21 04:47 01/26/21 04:47 01/26/21 04:47 General appearance: no acute distress - Respiratory Respiratory effort: normal Respiratory: bilateral: CTA - Cardiovascular Rhythm: regular Heart Sounds: Present: S1 & S2 - Gastrointestinal General gastrointestinal: Present: soft, non-tender, non-distended - Labs CBC & Chem 7: 01/24/21 01:02 01/26/21 04:00 Labs: Laboratory Results - last 24 hr 01/25/21 01/25/21 01/26/21 15:39 22:25 03:15 Sodium Potassium Chloride Carbon Dioxide Anion Gap BUN Creatinine Estimated GFR BUN/Creatinine Ratio Glucose POC Glucose 115 H 92 Calcium Urine Creatinine 187.7 H Protein/Creatinin Ratio 0.10 Urine Sodium 44 Urine Total Protein 18 H 01/26/21 01/26/21 04:00 07:28 Sodium 135 L D Potassium 3.5 L Chloride 99.3 Carbon Dioxide 22 Anion Gap 17 BUN 31 H Creatinine 2.4 H Estimated GFR 25 BUN/Creatinine Ratio 13 Glucose 123 H POC Glucose 108 H Calcium 8.8 Urine Creatinine Protein/Creatinin Ratio Urine Sodium Urine Total Protein
[2021-01-26] MEDS: PANTOPRAZOLE 40 MG INJ IV SCH (12:00)
--- NOTE | 2021-01-26 13:58 | Progress Note ---
Assessment and Plan --Intractable nausea and vomiting Etiology unclear. Patient has had gastric bypass. Would treat empirically for peptic ulcer disease. -As needed pain meds and antiemetics --Pancreatic head lesion/ mass GI consulted, MRI abdomen suggestive for simple cyst MRI abdomen: 2.1 cm cystic lesion in the uncinate process of the pancreas. Given its size, guidelines recommend repeat imaging every 6 months for 2 years and then every year for 2 years to determine stability over time. --Leukocytosis with sepsis --Urinary tract infection follow blood culture, continue empiric antibiotics --KYLE, vasomotor nephropathy, Cr 4.3 on admission Placed on bicarbonate drip, nephrology consulted, follow BMP --hyperkalemia Potassium level will improved when renal function improves --morbid obesity, due to excess calorie Dietary recommendation when clinically more stable --DVT prophylaxis Heparin for DVT prophylaxis Daily clinical course: 01/25/21; start on clear liquid diet, renal function slightly improved, ini tiated on bicarbonate drip. Follow BMP 01/26/21: remains on bicarbonate drip, follow BMP. pt still c/o nausea/vomiting, GI following, remains on clear liquid diet Subjective Date of service: 01/26/21 Principal diagnosis: N/V Interval history: Patient seen and examined. Medical records and medication list reviewed. No acute event overnight noted by the RN. Patient patient continued to complains of nausea and vomiting, renal function improving Discussed plan of care at bedside with patient. Objective - Exam Narrative Exam: GENERAL: well-developed and well-nourished morbidly obese -[place] female lying on bed appeared to be in mild discomfort. HEENT: Normocephalic. Atraumatic. No conjunctival congestion or icterus. Patient has moist mucous membranes. NECK: Supple. Trachea midline. CHEST/LUNGS: Clear to auscultated bilaterally, breathing nonlabored. No wheezes crackles or rhonchi. HEART/CARDIOVASCULAR: Regular in rate and rhythm. S1 and S2 positive. ABDOMEN: Abdomen is soft, nontender. Patient has normal bowel sounds. SKIN: There is no rash. Warm and dry. NEURO: No focal motor deficit. Follows command. MUSCULOSKELETAL: No joint effusion or tenderness. EXTRIMITY: No edema, no cyanosis or clubbing. PSYCH: Cooperative. - Constitutional Vitals: Vital Signs - 12hr 01/26/21 04:47 Temperature 97.8 F Pulse Rate 87 Respiratory 18 Rate Blood Pressure 135/87 O2 Sat by Pulse 96 Oximetry - Labs CBC & Chem 7: 01/24/21 01:02 01/28/21 10:32 Labs: Abnormal lab results 01/25/21 01/26/21 01/26/21 Range/Units 15:39 03:15 04:00 Sodium 135 L D (137-145) mmol/L Potassium 3.5 L (3.6-5.0) mmol/L BUN 31 H (7-17) mg/dL Creatinine 2.4 H (0.6-1.2) mg/dL Glucose 123 H (65-100) mg/dL POC Glucose 115 H (70-105) mg/dL Urine Creatinine 187.7 H (0.1-20.0) mg/dL Urine Total Protein 18 H (5-11.8) mg/dL 01/26/21 Range/Units 07:28 Sodium (137-145) mmol/L Potassium (3.6-5.0) mmol/L BUN (7-17) mg/dL Creatinine (0.6-1.2) mg/dL Glucose (65-100) mg/dL POC Glucose 108 H (70-105) mg/dL Urine Creatinine (0.1-20.0) mg/dL Urine Total Protein (5-11.8) mg/dL
[2021-01-26] MEDS: MORPHINE 2 MG/1 ML INJ IV PRN (21:47)
[2021-01-27] MEDS: HEPARIN 5,000 UNIT/1 ML VIAL SUB-Q SCH ×3 (05:24→21:04)
[2021-01-27] MEDS: METOCLOPRAMIDE 10 MG/2 ML INJ IV PRN (05:24)
[2021-01-27 08:17] LABS: Calcium 8.4 mg/dL (8.4-10.2)
[2021-01-27] MEDS: INSULIN REGULAR, HUMAN 100 UNITS/1 ML SUB-Q SCH ×3 (08:48→17:38)
--- NOTE | 2021-01-27 10:03 | Gastroenterology Progress Note ---
Assessment and Plan - Patient Problems (1) Pancreas cyst Current Visit: Yes Status: Acute Plan to address problem: -The patient will need surveillance MRIs as an outpatient (or, EUS with FNA for staging; both acceptable). - No further inpatient workup. (2) Nausea & vomiting Current Visit: Yes Status: Acute Qualifiers: Vomiting type: unspecified Vomiting Intractability: intractable Qualified Code(s): R11.2 - Nausea with vomiting, unspecified Plan to address problem: - Given the chronic DM, this may be mild gastroparesis; also possible is mild pancreatitis from compression from the cyst. No signs of obstruction on CT scan, but partial SBO/GOO from surgical adhesions possible. - Lipase and hgb a1C now acceptable, and KYLE has almost resolved. - Will get SBFT tomorrow to assure no obstruction; continue reglan for possible mild gastroparesis. - Continue Protonix IV for now. Subjective Date of service: 01/27/21 Principal diagnosis: N/V Interval history: The patient is tolerating small bites of food, but still has N and a trace of vomiting. There is no CP or SOB. No fevers overnight. No blood in stool. Objective - Constitutional Vitals: Temp Pulse Resp BP Pulse Ox 98.1 F 93 H 18 116/79 99 01/27/21 05:18 01/27/21 05:18 01/27/21 05:18 01/27/21 05:18 01/27/21 05:18 General appearance: no acute distress - Respiratory Respiratory effort: normal Respiratory: bilateral: CTA - Cardiovascular Rhythm: regular Heart Sounds: Present: S1 & S2 - Gastrointestinal General gastrointestinal: Present: soft, tender (Mild epigastric tenderness), non-distended - Labs CBC & Chem 7: 01/24/21 01:02 01/27/21 07:55 Labs: Laboratory Results - last 24 hr 01/26/21 01/26/21 01/26/21 12:39 17:48 21:28 Sodium Potassium Chloride Carbon Dioxide Anion Gap BUN Creatinine Estimated GFR BUN/Creatinine Ratio Glucose POC Glucose 96 102 79 Hemoglobin A1c Calcium Lipase 01/27/21 01/27/21 01/27/21 05:16 07:55 07:55 Sodium 133 L Potassium 3.2 L Chloride 95.1 L Carbon Dioxide 25 Anion Gap 16 BUN 20 H Creatinine 1.7 H Estimated GFR 37 BUN/Creatinine Ratio 12 Glucose 118 H POC Glucose 123 H Hemoglobin A1c 6.1 H Calcium 8.4 Lipase 28
[2021-01-27] MEDS: POTASSIUM CHLORIDE ER 20 MEQ TAB PO SCH ×2 (11:40→17:42)
[2021-01-27] MEDS: PANTOPRAZOLE 40 MG INJ IV SCH (11:40)
[2021-01-27] MEDS: ONDANSETRON 4 MG/2 ML INJ IV PRN (11:48)
--- NOTE | 2021-01-27 15:37 | Progress Note ---
Assessment and Plan --Intractable nausea and vomiting Etiology unclear. Patient has had gastric bypass. Would treat empirically for peptic ulcer disease and possible gastroparesis -As needed pain meds and antiemetics --Pancreatic head lesion/ mass GI consulted, MRI abdomen suggestive for simple cyst The patient will need surveillance MRIs as an outpatient (or, EUS with FNA for staging; both acceptable). Per GI No further inpatient workup. MRI abdomen: 2.1 cm cystic lesion in the uncinate process of the pancreas. Given its size, guidelines recommend repeat imaging every 6 months for 2 years and then every year for 2 years to determine stability over time. --Leukocytosis with sepsis --Urinary tract infection follow blood culture, continue empiric antibiotics --KYLE, vasomotor nephropathy, Cr 4.3 on admission Placed on bicarbonate drip, nephrology consulted, follow BMP --hyperkalemia Potassium level will improved when renal function improves --DM type 2, hold home meds given compromised renal function cont SSI for now --morbid obesity, due to excess calorie Dietary recommendation when clinically more stable --DVT prophylaxis Heparin for DVT prophylaxis Daily clinical course: 01/25/21; start on clear liquid diet, renal function slightly improved, initiated on bicarbonate drip. Follow BMP 01/26/21: remains on bicarbonate drip, follow BMP. pt still c/o nausea/vomiting, GI following, remains on clear liquid diet 01/27/21; still c/o n/v. get SBFT tomorrow to assure no obstruction; continue reglan for possible mild gastroparesis along with PPI. Subjective Date of service: 01/27/21 Principal diagnosis: N/V Interval history: Patient seen and examined. Medical records and medication list reviewed. No acute event overnight noted by the RN. Patient patient continued to complains of nausea and vomiting, renal function improving Discussed plan of care at bedside with patient. Objective - Exam Narrative Exam: GENERAL: well-developed and well-nourished morbidly obese -[place] female lying on bed appeared to be in mild discomfort. HEENT: Normocephalic. Atraumatic. No conjunctival congestion or icterus. Patient has moist mucous membranes. NECK: Supple. Trachea midline. CHEST/LUNGS: Clear to auscultated bilaterally, breathing nonlabored. No wheezes crackles or rhonchi. HEART/CARDIOVASCULAR: Regular in rate and rhythm. S1 and S2 positive. ABDOMEN: Abdomen is soft, nontender. Patient has normal bowel sounds. SKIN: There is no rash. Warm and dry. NEURO: No focal motor deficit. Follows command. MUSCULOSKELETAL: No joint effusion or tenderness. EXTRIMITY: No edema, no cyanosis or clubbing. PSYCH: Cooperative. - Constitutional Vitals: Vital Signs - 12hr 01/27/21 01/27/21 05:18 11:54 Temperature 98.1 F 98.1 F Pulse Rate 93 H 92 H Respiratory 18 22 Rate Blood Pressure 116/79 139/88 O2 Sat by Pulse 99 98 Oximetry - Labs CBC & Chem 7: 01/24/21 01:02 01/28/21 10:32 Labs: Abnormal lab results 01/27/21 01/27/21 01/27/21 Range/Units 05:16 07:55 07:55 Sodium 133 L (137-145) mmol/L Potassium 3.2 L (3.6-5.0) mmol/L Chloride 95.1 L (98-107) mmol/L BUN 20 H (7-17) mg/dL Creatinine 1.7 H (0.6-1.2) mg/dL Glucose 118 H (65-100) mg/dL POC Glucose 123 H (70-105) mg/dL Hemoglobin A1c 6.1 H (4-6) % 01/27/21 Range/Units 11:53 Sodium (137-145) mmol/L Potassium (3.6-5.0) mmol/L Chloride (98-107) mmol/L BUN (7-17) mg/dL Creatinine (0.6-1.2) mg/dL Glucose (65-100) mg/dL POC Glucose 113 H (70-105) mg/dL Hemoglobin A1c (4-6) %
--- NOTE | 2021-01-27 20:45 | Progress Note ---
Assessment and Plan 1. Acute kidney injury: Vasomotor KYLE in the setting of volume depletion. Low FeNa. Imaging negative for hydro. Continue IV fluids. Monitor renal function. Creatinine level improving. Avoid nephrotoxic agents. Meds dosage based on GFR. 2. FEN: Hypernatremia, improved, monitor. Anion-gap metabolic acidosis, 2/2 KYLE, Sod bicarb drip, monitor. Replete K. Monitor lytes and volume status. 3. Nausea and vomiting: CT abdomen showed possible cystitis. Per primary. 4. UTI: S/p abx. 5. DM-2. 6. HTN. 7. Pancreatic head cystic lesion/ mass. Subjective: Patient was seen and examined at the bedside. C/o nausea. Examination: General appearance: well-developed, obese, appears stated age, no distress HEENT: atraumatic Neck: trachea midline Respiratory: ctab Heart: S1S2, regular, no murmur Abdomen: soft, bowel sounds heard, NT Integumentary: no rash Neurologic: AO, able to move extremities Ext: no edema Subjective Date of service: 01/27/21 Principal diagnosis: N/V Objective - Vital Signs Vital signs: Vital Signs - 12hr 01/27/21 01/27/21 01/27/21 10:00 11:54 16:48 Temperature 98.1 F 97.6 F Pulse Rate 92 H 93 H Respiratory 22 22 Rate Blood Pressure 139/88 125/86 O2 Sat by Pulse 99 98 100 Oximetry - Lab 01/24/21 01:02 01/28/21 10:32 Most recent lab results Calcium 8.4 mg/dL (8.4-10.2) 01/27/21 07:55 Urine Creatinine 187.7 mg/dL (0.1-20.0) H 01/26/21 03:15 Urine Sodium 44 mmol/L 01/26/21 03:15 Urine Total Protein 18 mg/dL (5-11.8) H 01/26/21 03:15 Medications & Allergies - Medications Allergies/Adverse Reactions: Allergies codeine Allergy (Verified 01/24/21 00:01) Unknown Penicillins Allergy (Verified 01/24/21 07:55) Nausea Home Medications: Home Medications Medication Instructions Recorded Confirmed Last Taken Type AtorvaSTATin [Lipitor] 20 mg PO QHS 01/24/21 01/24/21 01/23/21 History Lisinopril/Hydrochlorothiazide 1 tab PO QDAY 01/24/21 01/24/21 01/23/21 History [Zestoretic 20-25 mg] Pioglitazone [Actos] 15 mg PO QDAY 01/24/21 01/24/21 01/23/21 History Valacyclovir HCl [Valacyclovir] 1,000 mg PO BID 01/24/21 01/24/21 01/23/21 History buPROPion XL [Wellbutrin Xl] 300 mg PO QDAY 01/24/21 01/24/21 01/23/21 History glipiZIDE [Glucotrol] 10 mg PO AC 01/24/21 01/24/21 01/23/21 History Active Medications: Generic Name Dose Route Start Last Admin Trade Name Freq PRN Reason Stop Dose Admin Acetaminophen 650 mg 01/24/21 09:02 Acetaminophen 325 Mg Tab PO Q4H PRN Pain MILD(1-3)/Fever >100.5/YEH Hydrocodone Bitart/Acetaminophen 2 each 01/24/21 09:02 01/25/21 18:20 Hydrocodone/Acetaminophen 5-325 Mg Tab PO 2 each Q6H PRN Administration Pain, Moderate (4-6) Heparin Sodium (Porcine) 5,000 unit 01/24/21 14:00 01/27/21 17:42 Heparin 5,000 Unit/1 Ml Vial SUB-Q 5,000 unit Q8HR NICHOLAS Administration Hydralazine HCl 5 mg 01/24/21 09:11 Hydralazine 20 Mg/1 Ml Inj IV Q30MIN PRN Hypertension Sodium Bicarbonate 75 meq/ 1,075 mls @ 100 mls/hr 01/24/21 19:00 01/26/21 23:17 Sterile Water IV 100 mls/hr DIRECT NICHOLAS Administration Insulin Human Regular 0 units 01/24/21 16:30 01/27/21 17:38 Insulin Regular, Human 100 Units/1 Ml SUB-Q Not Given ACHS [facility] Protocol Metoclopramide HCl 5 mg 01/24/21 15:00 01/27/21 05:24 Metoclopramide 10 Mg/2 Ml Inj IV 5 mg Q6H PRN Administration Nausea And Vomiting Morphine Sulfate 1 mg 01/24/21 13:30 01/26/21 21:47 Morphine 2 Mg/1 Ml Inj IV 1 mg Q3H PRN Administration Pain, Moderate (4-6) Ondansetron HCl 4 mg 01/24/21 09:02 01/27/21 11:48 Ondansetron 4 Mg/2 Ml Inj IV 4 mg Q8H PRN Administration Nausea And Vomiting Pantoprazole Sodium 40 mg 01/24/21 17:00 01/27/21 11:40 Pantoprazole 40 Mg Inj IV 40 mg QDAY NICHOLAS Administration
[2021-01-28] MEDS: INSULIN REGULAR, HUMAN 100 UNITS/1 ML SUB-Q SCH ×5 (00:44→21:13)
[2021-01-28] MEDS: MORPHINE 2 MG/1 ML INJ IV PRN (00:50)
[2021-01-28] MEDS: METOCLOPRAMIDE 10 MG/2 ML INJ IV PRN (04:54)
[2021-01-28] MEDS: SODIUM BICARBONATE 75 MEQ in WATER FOR INJECTION (PF) 1,000 ML IV SCH (05:33)
[2021-01-28] MEDS: HEPARIN 5,000 UNIT/1 ML VIAL SUB-Q SCH ×3 (06:11→21:14)
--- NOTE | 2021-01-28 09:34 | XRay Report ---
ABDOMEN 1 VIEW(S) INDICATION / CLINICAL INFORMATION: Nausea and vomiting. History of gastric surgery.. COMPARISON: CT abdomen without contrast performed 01/24/2021 FINDINGS: TUBES / LINES: None. BOWEL GAS PATTERN: No significant abnormality. FREE AIR / EXTRALUMINAL GAS: None seen. ADDITIONAL FINDINGS: No significant additional findings. IMPRESSION: No significant abnormality. Please note this examination was scheduled as a small bowel series. The p atient was unable to ingest the oral contrast agent. The patient only took 3 or 4 small drinks and vo mited. The patient refused to proceed. Signer Name: Luis F Jones Jr, MD Signed: 01/28/2021 9:30 AM Workstation Name: [id number]
[2021-01-28] MEDS: PANTOPRAZOLE 40 MG INJ IV SCH (09:39)
--- NOTE | 2021-01-28 10:43 | Gastroenterology Progress Note ---
Assessment and Plan - Patient Problems (1) Pancreas cyst Current Visit: Yes Status: Acute Plan to address problem: -The patient will need surveillance MRIs as an outpatient (or, EUS with FNA for staging; both acceptable). - No further inpatient workup. (2) Nausea & vomiting Current Visit: Yes Status: Acute Qualifiers: Vomiting type: unspecified Vomiting Intractability: intractable Qualified Code(s): R11.2 - Nausea with vomiting, unspecified Plan to address problem: - Given the chronic DM, this may be mild gastroparesis; also possible is mild pancreatitis from compression from the cyst. No signs of obstruction on CT scan, but partial SBO/GOO from surgical adhesions possible. - Lipase and hgb a1C now acceptable, and KYLE has almost resolved. - Unable to tolerate PO contrast for SBFT; will plan EGD on Thursday; continue reglan. - Continue Protonix IV for now. Subjective Date of service: 01/28/21 Principal diagnosis: N/V Interval history: The patient tried the SBFT today, but vomited the contrast. She had no blood in the emesis, and she has had no blood in her stools. She has no CP or SOB. Her last BM was . Objective - Constitutional Vitals: Temp Pulse Resp BP Pulse Ox 98.0 F 102 H 16 135/94 100 01/28/21 04:34 01/28/21 04:34 01/28/21 04:34 01/28/21 04:34 01/28/21 04:34 General appearance: no acute distress - EENT Eyes: PERRL, EOM intact ENT: hearing intact, clear oral mucosa - Respiratory Respiratory effort: normal Respiratory: bilateral: CTA - Cardiovascular Rhythm: regular Heart Sounds: Present: S1 & S2 - Gastrointestinal General gastrointestinal: Present: soft, non-tender, non-distended - Labs CBC & Chem 7: 01/24/21 01:02 01/27/21 07:55 Labs: Laboratory Results - last 24 hr 01/27/21 01/27/21 01/27/21 11:53 16:46 23:38 POC Glucose 113 H 108 H 89 01/28/21 07:48 POC Glucose 90
[2021-01-28] MEDS: MAGNESIUM HYDROXIDE (MOM) ORAL LIQD UDC PO NR ×2 (11:57→11:58)
--- NOTE | 2021-01-28 13:08 | Progress Note ---
Assessment and Plan 1. Acute kidney injury: Vasomotor KYLE in the setting of volume depletion. Low FeNa. Imaging negative for hydro. Continue IV fluids. Monitor renal function. Creatinine level is better. Avoid nephrotoxic agents. Meds dosage based on GFR. 2. FEN: Hypernatremia, improved, monitor. Anion-gap metabolic acidosis, 2/2 KYLE, improved, monitor. Replete Mg and phos. Monitor lytes and volume status. 3. Nausea and vomiting: CT abdomen showed possible cystitis. Per primary. 4. UTI: S/p abx. 5. DM-2. 6. HTN. 7. Pancreatic head cystic lesion/ mass. Subjective: Patient was seen and examined at the bedside. C/o nausea. Examination: General appearance: well-developed, obese, appears stated age, no distress HEENT: atraumatic Neck: trachea midline Respiratory: ctab Heart: S1S2, regular, no murmur Abdomen: soft, bowel sounds heard, NT Integumentary: no rash Neurologic: AO, able to move extremities Ext: no edema Subjective Date of service: 01/28/21 Principal diagnosis: N/V Objective - Vital Signs Vital signs: Vital Signs - 12hr 01/28/21 04:34 Temperature 98.0 F Pulse Rate 102 H Respiratory 16 Rate Blood Pressure 135/94 O2 Sat by Pulse 100 Oximetry - Lab 01/24/21 01:02 01/28/21 10:32 Most recent lab results Calcium 9.0 mg/dL (8.4-10.2) 01/28/21 10:32 Phosphorus 1.60 mg/dL (2.5-4.5) L 01/28/21 10:32 Magnesium 1.40 mg/dL (1.7-2.3) L 01/28/21 10:32 Urine Creatinine 187.7 mg/dL (0.1-20.0) H 01/26/21 03:15 Urine Sodium 44 mmol/L 01/26/21 03:15 Urine Total Protein 18 mg/dL (5-11.8) H 01/26/21 03:15 Medications & Allergies - Medications Allergies/Adverse Reactions: Allergies codeine Allergy (Verified 01/24/21 00:01) Unknown Penicillins Allergy (Verified 01/24/21 07:55) Nausea Home Medications: Home Medications Medication Instructions Recorded Confirmed Last Taken Type AtorvaSTATin [Lipitor] 20 mg PO QHS 10/28/21 10/28/21 10/27/21 History Lisinopril/Hydrochlorothiazide 1 tab PO QDAY 01/24/21 01/24/21 01/23/21 History [Zestoretic 20-25 mg] Pioglitazone [Actos] 15 mg PO QDAY 01/24/21 01/24/21 01/23/21 History Valacyclovir HCl [Valacyclovir] 1,000 mg PO BID 01/24/21 01/24/21 01/23/21 History buPROPion XL [Wellbutrin Xl] 300 mg PO QDAY 01/24/21 01/24/21 01/23/21 History glipiZIDE [Glucotrol] 10 mg PO AC 01/24/21 01/24/21 01/23/21 History Active Medications: Generic Name Dose Route Start Last Admin Trade Name Freq PRN Reason Stop Dose Admin Acetaminophen 650 mg 01/24/21 09:02 Acetaminophen 325 Mg Tab PO Q4H PRN Pain MILD(1-3)/Fever >100.5/YEH Hydrocodone Bitart/Acetaminophen 2 each 01/24/21 09:02 01/25/21 18:20 Hydrocodone/Acetaminophen 5-325 Mg Tab PO 2 each Q6H PRN Administration Pain, Moderate (4-6) Heparin Sodium (Porcine) 5,000 unit 01/24/21 14:00 01/28/21 06:11 Heparin 5,000 Unit/1 Ml Vial SUB-Q 5,000 unit Q8HR NICHOLAS Administration Hydralazine HCl 5 mg 01/24/21 09:11 Hydralazine 20 Mg/1 Ml Inj IV Q30MIN PRN Hypertension Sodium Bicarbonate 75 meq/ 1,075 mls @ 100 mls/hr 01/24/21 19:00 01/28/21 05: 33 Sterile Water IV 100 mls/hr DIRECT NICHOLAS Administration Insulin Human Regular 0 units 01/24/21 16:30 01/28/21 11:59 Insulin Regular, Human 100 Units/1 Ml SUB-Q Not Given ACHS NICHOLAS Protocol Magnesium Hydroxide 30 ml 01/28/21 11:00 01/28/21 11:58 Magnesium Hydroxide (Mom) Oral Liqd Udc PO 01/28/21 15:00 Not Given ONCE@1100 NR Metoclopramide HCl 5 mg 01/24/21 15:00 11/01/21 04:54 Metoclopramide 10 Mg/2 Ml Inj IV 5 mg Q6H PRN Administration Nausea And Vomiting Morphine Sulfate 1 mg 01/24/21 13:30 01/28/21 00:50 Morphine 2 Mg/1 Ml Inj IV 1 mg Q3H PRN Administration Pain, Moderate (4-6) Ondansetron HCl 4 mg 01/24/21 09:02 01/27/21 11:48 Ondansetron 4 Mg/2 Ml Inj IV 4 mg Q8H PRN Administration Nausea And Vomiting Pantoprazole Sodium 40 mg 01/24/21 17:00 01/28/21 09:39 Pantoprazole 40 Mg Inj IV 40 mg QDAY NICHOLAS Administration
--- NOTE | 2021-01-28 13:33 | Progress Note ---
Assessment and Plan --Intractable nausea and vomiting Etiology unclear. Patient has had gastric bypass, h/o DM . Would treat empirically for peptic ulcer disease and possible gastroparesis lipase slightly elevated on admission As needed pain meds and antiemetics --Pancreatic head lesion/ mass GI consulted, MRI abdomen suggestive for simple cyst The patient will need surveillance MRIs as an outpatient (or, EUS with FNA for staging; both acceptable). Per GI No further inpatient workup. MRI abdomen: 2.1 cm cystic lesion in the uncinate process of the pancreas. Given its size, guidelines recommend repeat imaging every 6 months for 2 years and then every year for 2 years to determine stability over time. --Leukocytosis with sepsis --Urinary tract infection continue empiric antibiotics --KYLE, vasomotor nephropathy, Cr 4.3 on admission Placed on bicarbonate drip, nephrology consulted, follow BMP --hyperkalemia Potassium level will improved when renal function improves --DM type 2, hold home meds given compromised renal function cont SSI for now --morbid obesity, due to excess calorie Dietary recommendation when clinically more stable --DVT prophylaxis Heparin for DVT prophylaxis Daily clinical course: 01/25/21; start on clear liquid diet, renal function slightly improved, initiated on bicarbonate drip. Follow BMP 01/26/21: remains on bicarbonate drip, follow BMP. pt still c/o nausea/vomiting, GI following, remains on clear liquid diet 01/27/21; still c/o n/v. get SBFT tomorrow to assure no obstruction; continue reglan for possible mild gastroparesis along with PPI. 01/28/21: - Lipase and hgb a1C improved, and KYLE has almost resolved. Unable to tolerate PO contrast for SBFT; will plan EGD on Thursday; continue reglan. will Continue Protonix IV for now. Subjective Date of service: 01/28/21 Principal diagnosis: N/V Interval history: Patient seen and examined. Medical records and medication list reviewed. No acute event overnight noted by the RN. Patient could not do SBFT as she could not tolerate contrast Planned for EGD tomorrow Discussed plan of care at bedside with patient. Objective - Exam Narrative Exam: GENERAL: well-developed and well-nourished morbidly obese -[place] female lying on bed appeared to be in mild discomfort. HEENT: Normocephalic. Atraumatic. No conjunctival congestion or icterus. Fatemeh ent has moist mucous membranes. NECK: Supple. Trachea midline. CHEST/LUNGS: Clear to auscultated bilaterally, breathing nonlabored. No wheezes crackles or rhonchi. HEART/CARDIOVASCULAR: Regular in rate and rhythm. S1 and S2 positive. ABDOMEN: Abdomen is soft, nontender. Patient has normal bowel sounds. SKIN: There is no rash. Warm and dry. NEURO: No focal motor deficit. Follows command. MUSCULOSKELETAL: No joint effusion or tenderness. EXTRIMITY: No edema, no cyanosis or clubbing. PSYCH: Cooperative. - Constitutional Vitals: Vital Signs - 12hr 01/28/21 04:34 Temperature 98.0 F Pulse Rate 102 H Respiratory 16 Rate Blood Pressure 135/94 O2 Sat by Pulse 100 Oximetry - Labs CBC & Chem 7: 01/24/21 01:02 01/28/21 10:32 Labs: Abnormal lab results 01/27/21 01/28/21 01/28/21 Range/Units 16:46 10:32 11:27 Sodium 135 L (137-145) mmol/L Chloride 95.1 L (98-107) mmol/L Creatinine 1.9 H (0.6-1.2) mg/dL Glucose 113 H (65-100) mg/dL POC Glucose 108 H 149 H (70-105) mg/dL Phosphorus 1.60 L (2.5-4.5) mg/dL Magnesium 1.40 L (1.7-2.3) mg/dL
[2021-01-28] MEDS: buPROPion XL 150 MG TAB PO SCH (14:00)
[2021-01-28] MEDS ORDERED: MAGNESIUM SULFATE 2 GM/50 ML BAG IV ONE (21:00)
[2021-01-28] MEDS ORDERED: SODIUM PHOSPHATE 15 MMOL in SODIUM CHLORIDE 0.9% 250ML 250 ML IV ONE (21:27)
[2021-01-29] MEDS: SODIUM BICARBONATE 75 MEQ in WATER FOR INJECTION (PF) 1,000 ML IV SCH (01:22)
[2021-01-29 05:06] LABS: Calcium 8.6 mg/dL (8.4-10.2)
[2021-01-29] MEDS: HEPARIN 5,000 UNIT/1 ML VIAL SUB-Q SCH ×3 (05:55→21:32)
[2021-01-29] MEDS: INSULIN REGULAR, HUMAN 100 UNITS/1 ML SUB-Q SCH ×4 (07:30→21:32)
--- NOTE | 2021-01-29 09:16 | Progress Note ---
Assessment and Plan 1. Acute kidney injury: Vasomotor KYLE in the setting of volume depletion. Low FeNa. Imaging negative for hydro. Continue IV fluids. Monitor renal function. Creatinine level is better. Avoid nephrotoxic agents. Meds dosage based on GFR. 2. FEN: Hypernatremia, improved, monitor. Anion-gap metabolic acidosis, 2/2 KYLE, improved, monitor. Monitor lytes and volume status. 3. Nausea and vomiting: CT abdomen showed possible cystitis. Per primary. 4. UTI: S/p abx. 5. DM-2. 6. HTN. 7. Pancreatic head cystic lesion/ mass. Will sign off. F/u with me in about 2 weeks. Subjective: Patient was seen and examined at the bedside. Doing better today. Examination: General appearance: well-developed, obese, appears stated age, no distress HEENT: atraumatic Neck: trachea midline Respiratory: ctab Heart: S1S2, regular, no murmur Abdomen: soft, bowel sounds heard, NT Integumentary: no rash Neurologic: AO, able to move extremities Ext: no edema Subjective Date of service: 01/29/21 Principal diagnosis: N/V Objective - Vital Signs Vital signs: Vital Signs - 12hr 01/28/21 23:18 O2 Sat by Pulse 96 Oximetry - Lab 01/24/21 01:02 01/29/21 04:00 Most recent lab results Calcium 8.6 mg/dL (8.4-10.2) 01/29/21 04:00 Phosphorus 2.60 mg/dL (2.5-4.5) D 01/29/21 04:00 Magnesium 1.70 mg/dL (1.7-2.3) 01/29/21 04:00 Urine Creatinine 187.7 mg/dL (0.1-20.0) H 01/26/21 03:15 Urine Sodium 44 mmol/L 01/26/21 03:15 Urine Total Protein 18 mg/dL (5-11.8) H 01/26/21 03:15 Medications & Allergies - Medications Allergies/Adverse Reactions: Allergies codeine Allergy (Verified 01/24/21 00:01) Unknown Penicillins Allergy (Verified 01/24/21 07:55) Nausea Home Medications: Home Medications Medication Instructions Recorded Confirmed Last Taken Type AtorvaSTATin [Lipitor] 20 mg PO QHS 01/24/21 01/24/2101/23/21 History Lisinopril/Hydrochlorothiazide 1 tab PO QDAY 01/24/21 01/24/21 01/23/21 History [Zestoretic 20-25 mg] Pioglitazone [Actos] 15 mg PO QDAY 01/24/21 01/24/21 01/23/21 History Valacyclovir HCl [Valacyclovir] 1,000 mg PO BID 01/24/21 01/24/21 01/23/21 History buPROPion XL [Wellbutrin Xl] 300 mg PO QDAY 01/24/21 01/24/21 01/23/21 History glipiZIDE [Glucotrol] 10 mg PO AC 01/24/21 01/24/21 01/23/21 History Active Medications: Generic Name Dose Route Start Last Admin Trade Name Freq PRN Reason Stop Dose Admin Acetaminophen 650 mg 01/24/21 09:02 Acetaminophen 325 Mg Tab PO Q4H PRN Pain MILD(1-3)/Fever >100.5/YEH Bupropion HCl 300 mg 01/28/21 14:00 01/28/21 14:00 Bupropion Xl 150 Mg Tab PO 300 mg QDAY NICHOLAS Administration Heparin Sodium (Porcine) 5,000 unit 01/24/21 14:00 01/29/21 05:55 Heparin 5,000 Unit/1 Ml Vial SUB-Q Not Given Q8HR [facility] Hydralazine HCl 5 mg 01/24/21 09:11 Hydralazine 20 Mg/1 Ml Inj IV Q30MIN PRN Hypertension Potassium Chloride 10 meq/ 1,005 mls @ 100 mls/hr 01/29/21 09:00 Sodium Chloride IV DIRECT [facility] [place] Insulin Human Regular 0 units 01/24/21 16:30 01/28/21 21:13 Insulin Regular, Human 100 Units/1 Ml SUB-Q Not Given ACHS [facility] [place] Protocol Metoclopramide HCl 5 mg 01/24/21 15:00 01/28/21 04:54 Metoclopramide 10 Mg/2 Ml Inj IV 5 mg Q6H PRN Administration Nausea And Vomiting Ondansetron HCl 4 mg 01/24/21 09:02 01/27/21 11:48 Ondansetron 4 Mg/2 Ml Inj IV 4 mg Q8H PRN Administration Nausea And Vomiting Pantoprazole Sodium 40 mg 01/24/21 17:00 11/01/21 09:39 Pantoprazole 40 Mg Inj IV 40 mg QDAY NICHOLAS Administration
[2021-01-29] MEDS: POTASSIUM CHLORIDE 10 MEQ in SODIUM CHLORIDE 0.9% 1000 ML 1,000 ML IV SCH (10:15)
[2021-01-29] MEDS: PANTOPRAZOLE 40 MG INJ IV SCH (10:16)
[2021-01-29] MEDS: buPROPion XL 150 MG TAB PO SCH (10:16)
[2021-01-29] MEDS ORDERED: SODIUM CHLORIDE 0.9% 1000 ML 1,000 ML ONE (13:11)
--- NOTE | 2021-01-29 13:20 | Anesthesia Day of Surgery ---
Anesthesia Day of Surgery - Day of Surgery Patient Examined: Yes Patient H&P Reviewed: Yes Patient is NPO: Yes
--- NOTE | 2021-01-29 13:24 | Anesthesia Consultation ---
Anesthesia Consult and Med Hx Date of service: 01/29/21 - Airway Anesthetic Teeth Evaluation: Partials (Upper) ROM Head & Neck: Adequate Mental/Hyoid Distance: Adequate Mallampati Class: Class II Intubation Access Assessment: Good - Pre-Operative Health Status ASA Pre-Surgery Classification: ASA3 Proposed Anesthetic Plan: MAC - Pulmonary Hx Smoking: No - Cardiovascular System Hx Hypertension: Yes - Gastrointestinal Hx Gastroesophageal Reflux Disease: No (Pancreatic cyst; s/p gastric bypass) - Endocrine Hx Renal Disease: Yes (KYLE-improved) Hx Non-Insulin Dependent Diabetes: Yes - Hematic Hx Anemia: No Hx Sickle Cell Disease: No - Other Systems Hx Alcohol Use: No Hx Obesity: No
[2021-01-29] MEDS ORDERED: propofoL 200 MG/20 ML VIAL IV ONE (13:57)
--- NOTE | 2021-01-29 14:12 | Post Operative Note ---
Pre-op diagnosis: N/V Post-op diagnosis: other Findings: 1. Prior Neville/Y with normal lumen and no residual food 2. Few retained jacobo in the stomach pouch but no ulcer 3. Normal esophagus Procedure: EGD Anesthesia: MAC Surgeon: YOAN HOWELL Estimated blood loss: none Pathology: none Specimen disposition: other (N/A) Condition: stable Disposition: floor (Recs: 1. Full liquid diet. 2. CT of head; assess for lesion causing intractable N/V. 3. Continue all other current meds.)
--- NOTE | 2021-01-29 14:27 | Operative Report ---
DATE OF SURGERY: 01/29/2021 PROCEDURE PERFORMED: Esophagogastroduodenoscopy. PREOPERATIVE DIAGNOSIS: Intractable nausea and vomiting. POSTOPERATIVE DIAGNOSIS: Neville-en-Y anatomy, but no evidence of obstruction or ulceration. ENDOSCOPIST: Ilan Jon MD INSTRUMENT: The Olympus video endoscope. MEDICATIONS: MAC anesthesia by [facility]. COMPLICATIONS: None. SPECIMENS: None. ESTIMATED BLOOD LOSS: None. IMPLANTS: None. ASSISTANTS: None. CONDITION AT COMPLETION: Stable. DESCRIPTION OF PROCEDURE: The patient was informed of the risks and benefits of the procedure. She signed the informed consent to proceed. She was placed in the left lateral decubitus position. The above sedative medications were given. Her vital signs remained stable throughout the procedure. The instrument was advanced from the mouth to the small bowel under direct visualization. At that point, the bowel was insufflated and the endoscope was slowly withdrawn. FINDINGS: 1. Prior Neville-en-Y gastric bypass surgery with a normal lumen and no evidence of residual food or obstruction. 2. A few retained jacobo in the stomach pouch, but no ulceration was seen. 3. Normal esophagus. RECOMMENDATIONS: 1. Full liquid diet. 2. CT scan of the head to assess for lesion causing intractable nausea and vomiting. 3. Continue all other current medications. 4. Consider repeat scan of the abdomen, but her pancreas lesion appears too small to be causing symptoms and her lipase is now normal. TID: [id number] RECEIPT: [id number] [place]/WOJCIECH
--- NOTE | 2021-01-29 17:07 | Post Anesthesia Evaluation ---
- Post Anesthesia Evaluation Patient Participated: Yes Airway Patent: Yes Stable Respiratory Function: Yes Nausea/Vomiting: No Temp > 96.8F: Yes Pain Manageable: Yes Adequeate Hydration: Yes Anesthesia Complications: No Block Receding Appropriately: Not Applicable Patient on Ventilator: No
--- NOTE | 2021-01-29 17:25 | Cat Scan Report ---
CT head/brain w con INDICATION / CLINICAL INFORMATION: 60 years Female; Intracable N/V, assess for brain lesion 100 ML OMNI 300 . TECHNIQUE: Routine CT head without contrast. All CT scans at this location are performed using CT dos e reduction for ALARA by means of automated exposure control. COMPARISON: None. FINDINGS: BRAIN / INTRACRANIAL CONTENTS: There appears to be mild cerebral white matter disease which is nonspe cific though may reflect mild microvascular angiopathy. There is also mild cerebral atrophy. The vent ricular system is correspondingly appropriate in size and configuration. No definitive intracranial e nhancing lesions are appreciated. There is no significant mass effect. ORBITS: No significant abnormality of visualized orbits. SINUSES / MASTOIDS: There is mild mucosal thickening along the inferior right maxillary sinus. CRANIOCERVICAL JUNCTION: No significant abnormality. ADDITIONAL FINDINGS: None. IMPRESSION: 1. There is mild microvascular angiopathy and cerebral atrophy without evidence of intracranial enhan cing lesions. Signer Name: Ozzy Sims MD Signed: 01/29/2021 5:20 PM Workstation Name: [id number]
--- NOTE | 2021-01-29 17:49 | Progress Note ---
Assessment and Plan Assessment and plan: 10-year-old female with h/o HTN, DM type presents emergency room with complaints of nausea vomiting and dry heaves has been going on for 3 weeks. Patient states that she is having difficulty holding down food but she can tolerates water. Patient denies abdominal pain. Patient denies bloody vomitus, diarrhea, fever and chills. Patient also denies chest pain and shortness of breath. Patient states that she is fully vaccinated against Covid. CT abdomen in the ER showed possible pancreatic head lesion --Intractable nausea and vomiting Etiology unclear. Patient has had gastric bypass, h/o DM . Denies history of gastroparesis or similar episodes in the past. Would treat empirically for peptic ulcer disease and possible gastroparesis lipase slightly elevated on admission Was unable to follow oral contrast for SBFT As needed pain meds and antiemetics EGD 01/29/2021 was unremarkable, few jacobo were remaining in the stomach pouch, no ulcers, esophagus normal. Nausea and vomiting significantly improved, tolerating juices and advance diet as tolerated. No significant diarrhea. --Pancreatic head lesion/ mass GI consulted, MRI abdomen suggestive for simple cyst The patient will need surveillance MRIs as an outpatient (or, EUS with FNA for staging; both acceptable). Per GI No further inpatient workup. MRI abdomen: 2.1 cm cystic lesion in the uncinate process of the pancreas. Given its size, guidelines recommend repeat imaging every 6 months for 2 years and then every year for 2 years to determine stability over time. --Leukocytosis likely reactive --Urine cultures grew skin isi No evidence of sepsis, afebrile with borderline WBC Discontinue empiric antibiotics --KYLE, vasomotor nephropathy, Cr 4.3 on admission with metabolic acidosis Improved with hydration and bicarb drip, creatinine 1.7 today Nephrology consulted and following --Hyponatremia and hypochloremia Change IV fluids with normal saline --DM type 2, hold home meds given compromised renal function cont SSI for now --morbid obesity, due to excess calorie Dietary recommendation when clinically more stable --Recent fall after tripping, 2 weeks ago Healing scab, pretibial without evidence of infection --DVT prophylaxis Heparin for DVT prophylaxis Discussed with patient and the nursing staff. History Interval history: Patient reports improvement of nausea and vomiting. Tolerating water and juices and wants to eat more. Currently n.p.o. for EGD. Had a loose BM yesterday but not frequently. No abdominal pains. Afebrile. Hospitalist Physical - Constitutional Vitals: Temp Pulse Resp BP Pulse Ox 97.1 F L 85 16 126/83 100 01/29/21 14:10 01/29/21 14:30 01/29/21 14:30 01/29/21 14:30 01/29/21 14:30 General appearance: Present: no acute distress, obese - EENT Eyes: Present: PERRL, EOM intact ENT: clear oral mucosa - Neck Neck: Present: supple - Respiratory Respiratory effort: normal Respiratory: bilateral: CTA - Cardiovascular Rhythm: regular - Extremities Extremities: No edema - Abdominal General gastrointestinal: non-tender, tender, non-distended, normal bowel sounds - Integumentary Integumentary: Absent: rash - Psychiatric Psychiatric: appropriate mood/affect - Neurologic Neurologic: no focal deficits Results - Labs CBC & Chem 7: 01/24/21 01:02 01/29/21 04:00 Labs: Laboratory Last Values WBC 11.7 K/mm3 (4.5-11.0) H 01/24/21 01:02 RBC 4.27 M/mm3 (3.65-5.03) 01/24/21 01:02 Hgb 13.7 gm/dl (10.1-14.3) 01/24/21 01:02 Hct 43.1 % (30.3-42.9) H 01/24/21 01:02 MCV 101 fl (79-97) H 01/24/21 01:02 MCH 32 pg (28-32) 01/24/21 01:02 MCHC 32 % (30-34) 01/24/21 01:02 RDW 19.5 % (13.2-15.2) H 01/24/21 01:02 Plt Count 315 K/mm3 (140-440) 01/24/21 01:02 Lymph % (Auto) 8.9 % (13.4-35.0) L 01/24/21 01:02 [place] % (Auto) 6.7 % (0.0-7.3) 01/24/21 01:02 Eos % (Auto) 0.0 % (0.0-4.3) 01/24/21 01:02 Baso % (Auto) 0.1 % (0.0-1.8) 01/24/21 01:02 Lymph # (Auto) 1.0 K/mm3 (1.2-5.4) L 01/24/21 01:02 [place] # (Auto) 0.8 K/mm3 (0.0-0.8) 01/24/21 01:02 Eos # (Auto) 0.0 K/mm3 (0.0-0.4) 01/24/21 01:02 Baso # (Auto) 0.0 K/mm3 (0.0-0.1) 01/24/21 01:02 Seg Neutrophils % 84.3 % (40.0-70.0) H 01/24/21 01:02 Seg Neutrophils # 9.8 K/mm3 (1.8-7.7) H 01/24/21 01:02 Sodium 133 mmol/L (137-145) L 01/29/21 04:00 Potassium 3.7 mmol/L (3.6-5.0) 01/29/21 04:00 Chloride 93.6 mmol/L (98-107) L 01/29/21 04:00 Carbon Dioxide 27 mmol/L (22-30) 01/29/21 04:00 Anion Gap 16 mmol/L 01/29/21 04:00 BUN 11 mg/dL (7-17) 01/29/21 04:00 Creatinine 1.7 mg/dL (0.6-1.2) H 01/29/21 04:00 Estimated GFR 37 ml/min 01/29/21 04:00 BUN/Creatinine Ratio 6 % 01/29/21 04:00 Glucose 117 mg/dL (65-100) H 01/29/21 04:00 POC Glucose 120 mg/dL (70-105) H 01/29/21 16:10 Hemoglobin A1c 6.1 % (4-6) H 01/27/21 07:55 Calcium 8.6 mg/dL (8.4-10.2) 01/29/21 04:00 Phosphorus 2.60 mg/dL (2.5-4.5) D 01/29/21 04:00 Magnesium 1.70 mg/dL (1.7-2.3) 01/29/21 04:00 Total Bilirubin 0.60 mg/dL (0.1-1.2) 01/24/21 01:02 AST 11 units/L (5-40) 01/24/21 01:02 ALT 8 units/L (7-56) 01/24/21 01:02 Alkaline Phosphatase 116 units/L (35-129) 01/24/21 01:02 Total Protein 8.3 g/dL (6.3-8.2) H 01/24/21 01:02 Albumin 4.6 g/dL (3.9-5) 01/24/21 01:02 Albumin/Globulin Ratio 1.2 % 01/24/21 01:02 Lipase 28 units/L (13-60) 01/27/21 07:55 Urine Color Yellow (Yellow) 01/24/21 Unknown Urine Turbidity Cloudy (Clear) 01/24/21 Unknown Urine pH 5.0 (5.0-7.0) 01/24/21 Unknown Ur Specific [place] 1.020 (1.003-1.030) 01/24/21 Unknown Urine Protein 30 mg/dl mg/dL (Negative) 01/24/21 Unknown Urine Glucose (UA) 50 mg/dL (Negative) 01/24/21 Unknown Urine Ketones Tr mg/dL (Negative) 01/24/21 Unknown Urine Blood Neg (Negative) 01/24/21 Unknown Urine Nitrite Neg (Negative) 01/24/21 Unknown Urine Bilirubin Neg (Negative) 01/24/21 Unknown Urine Urobilinogen < 2.0 mg/dL (<2.0) 01/24/21 Unknown Ur Leukocyte Esterase Sm (Negative) 01/24/21 Unknown Urine WBC (Auto) 14.0 /HPF (0.0-6.0) H 01/24/21 Unknown Urine RBC (Auto) 6.0 /HPF (0.0-6.0) 01/24/21 Unknown U Epithel Cells (Auto) 28.0 /HPF (0-13.0) H 01/24/21 Unknown Urine Creatinine 187.7 mg/dL (0.1-20.0) H 01/26/21 03:15 Protein/Creatinin Ratio 0.10 01/26/21 03:15 Urine Sodium 44 mmol/L 01/26/21 03:15 Urine Total Protein 18 mg/dL (5-11.8) H 01/26/21 03:15 Garcia/IV: Voiding Method Toilet Active Medications - Current Medications Current Medications: Generic Name Dose Route Start Last Admin Trade Name Freq PRN Reason Stop Dose Admin Acetaminophen 650 mg 01/24/21 09:02 Acetaminophen 325 Mg Tab PO Q4H PRN Pain MILD(1-3)/Fever >100.5/YEH Bupropion HCl 300 mg 01/28/21 14:00 01/29/21 10:16 Bupropion Xl 150 Mg Tab PO Not Given QDAY NICHOLAS Heparin Sodium (Porcine) 5,000 unit 01/24/21 14:00 01/29/21 14:30 Heparin 5,000 Unit/1 Ml Vial SUB-Q 5,000 unit Q8HR NICHOLAS Administration Hydralazine HCl 5 mg 01/24/21 09:11 Hydralazine 20 Mg/1 Ml Inj IV Q30MIN PRN Hypertension Potassium Chloride 10 meq/ 1,005 mls @ 100 mls/hr 01/29/21 09:00 01/29/21 10:15 Sodium Chloride IV 100 mls/hr DIRECT NICHOLAS Administration Insulin Human Regular 0 units 01/24/21 16:30 01/29/21 16:30 Insulin Regular, Human 100 Units/1 Ml SUB-Q Not Given ACHS [facility] Protocol Metoclopramide HCl 5 mg 01/24/21 15:00 01/28/21 04:54 Metoclopramide 10 Mg/2 Ml Inj IV 5 mg Q6H PRN Administration Nausea And Vomiting Ondansetron HCl 4 mg 01/24/21 09:02 01/27/21 11:48 Ondansetron 4 Mg/2 Ml Inj IV 4 mg Q8H PRN Administration Nausea And Vomiting Pantoprazole Sodium 40 mg 01/24/21 17:00 01/29/21 10:16 Pantoprazole 40 Mg Inj IV 40 mg QDAY NICHOLAS Administration
[2021-01-30] MEDS: HEPARIN 5,000 UNIT/1 ML VIAL SUB-Q SCH ×3 (05:52→23:12)
[2021-01-30 10:04] LABS: Basophils % (Auto) 0.4 % (0.0-1.8); Eosinophils # (Auto) 0.1 K/mm3 (0.0-0.4); Eosinophils % (Auto) 1.1 % (0.0-4.3); Hematocrit 33.3 % (30.3-42.9); Lymphocytes # (Auto) 1.7 K/mm3 (1.2-5.4); Lymphocytes % (Auto) 22.7 % (13.4-35.0); Mean Corpuscular HGB Conc 33 % (30-34); Mean Corpuscular Volume 98 fl (79-97); Monocytes # (Auto) 0.6 K/mm3 (0.0-0.8); Monocytes % (Auto) 7.9 % (0.0-7.3); Platelet Count 198 K/mm3 (140-440); Red Blood Count 3.41 M/mm3 (3.65-5.03); Red Cell Distribution Width 18.6 % (13.2-15.2)
[2021-01-30] MEDS: INSULIN REGULAR, HUMAN 100 UNITS/1 ML SUB-Q SCH ×5 (10:59→23:00)
[2021-01-30] MEDS: buPROPion XL 150 MG TAB PO SCH (11:02)
--- NOTE | 2021-01-30 11:10 | Gastroenterology Progress Note ---
Assessment and Plan - Patient Problems (1) Pancreas cyst Current Visit: Yes Status: Acute Plan to address problem: -The patient will need surveillance MRIs as an outpatient (or, EUS with FNA for staging; both acceptable). - No further inpatient workup. (2) Nausea & vomiting Current Visit: Yes Status: Acute Qualifiers: Vomiting type: unspecified Vomiting Intractability: intractable Qualified Code(s): R11.2 - Nausea with vomiting, unspecified Plan to address problem: - Given the chronic DM, this may be mild gastroparesis; also possible is mild pancreatitis from compression from the cyst. No signs of obstruction on CT scan, but partial SBO/GOO from surgical adhesions possible. - EGD/head CT unremarkable; unable to tolerate SBFT. - Lipase and hgb a1C now acceptable, and KYLE has almost resolved. - Will readvance to regular diet; if unable to tolerate, get HIDA scan and consult surgery. Subjective Date of service: 01/30/21 Principal diagnosis: N/V Interval history: The patient is doing well without abdominal pain, and tolerating her liquid diet. She has no CP or SOB. Has had a BM without blood. Objective - Constitutional Vitals: Temp Pulse Resp BP Pulse Ox 98.1 F 94 H 16 126/79 99 01/30/21 04:33 01/30/21 04:33 01/30/21 04:33 01/30/21 04:33 01/30/21 04:33 General appearance: no acute distress - Respiratory Respiratory effort: normal Respiratory: bilateral: CTA - Cardiovascular Rhythm: regular Heart Sounds: Present: S1 & S2 - Gastrointestinal General gastrointestinal: Present: soft, non-tender, non-distended - Labs CBC & Chem 7: 01/30/21 09:28 01/29/21 04:00 Labs: Laboratory Results - last 24 hr 01/25/21 01/29/21 01/29/21 07:15 11:24 14:21 WBC RBC Hgb Hct MCV MCH MCHC RDW Plt Count Lymph % (Auto) [place] % (Auto) Eos % (Auto) Baso % (Auto) Lymph # (Auto) [place] # (Auto) Eos # (Auto) Baso # (Auto) Seg Neutrophils % Seg Neutrophils # POC Glucose 101 82 CA 19-9 Antigen 30 11/02/21 11/02/21 11/03/21 16:10 20:59 07:44 WBC RBC Hgb Hct MCV MCH MCHC RDW Plt Count Lymph % (Auto) [place] % (Auto) Eos % (Auto) Baso % (Auto) Lymph # (Auto) [place] # (Auto) Eos # (Auto) Baso # (Auto) Seg Neutrophils % Seg Neutrophils # POC Glucose 120 H 133 H 99 CA 19-9 Antigen 01/30/21 09:28 WBC 7.3 RBC 3.41 L Hgb 11.0 Hct 33.3 MCV 98 H MCH 32 MCHC 33 RDW 18.6 H Plt Count 198 Lymph % (Auto) 22.7 [place] % (Auto) 7.9 H Eos % (Auto) 1.1 Baso % (Auto) 0.4 Lymph # (Auto) 1.7 [place] # (Auto) 0.6 Eos # (Auto) 0.1 Baso # (Auto) 0.0 Seg Neutrophils % 67.9 Seg Neutrophils # 5.0 POC Glucose CA 19-9 Antigen
[2021-01-30] MEDS: METOCLOPRAMIDE 10 MG/2 ML INJ IV PRN ×2 (12:40→23:12)
[2021-01-30] MEDS: PANTOPRAZOLE 40 MG INJ IV SCH (12:41)
[2021-01-30 13:52] LABS: Albumin 2.9 g/dL (3.9-5); C-Reactive Protein 4.7 mg/dL (0.00-1.30); Calcium 8.7 mg/dL (8.4-10.2)
--- NOTE | 2021-01-30 15:33 | Post Anesthesia Evaluation ---
- Post Anesthesia Evaluation Patient Participated: Yes Airway Patent: Yes Stable Respiratory Function: Yes Nausea/Vomiting: No Temp > 96.8F: No Pain Manageable: Yes Adequeate Hydration: Yes Anesthesia Complications: No Block Receding Appropriately: Not Applicable Patient on Ventilator: No
--- NOTE | 2021-01-30 16:01 | Progress Note ---
Assessment and Plan Assessment and plan: 60-year-old female with h/o HTN, DM type presents emergency room with complaints of nausea vomiting and dry heaves has been going on for 3 weeks. Patient states that she is having difficulty holding down food but she can tolerates water. Patient denies abdominal pain. Patient denies bloody vomitus, diarrhea, fever and chills. Patient also denies chest pain and shortness of breath. Patient states that she is fully vaccinated against Covid. CT abdomen in the ER showed possible pancreatic head lesion --Intractable nausea and vomiting Etiology unclear. Patient has had gastric bypass, h/o DM, well controlled. Denies history of gastroparesis or similar episodes in the past. Would treat empirically for possible gastroparesis lipase slightly elevated on admission. COVID-19 PCR test negative. Was unable to follow oral contrast for SBFT As needed antiemetics, avoid narcotics EGD 01/29/2021 was unremarkable, few jacobo were remaining in the stomach pouch, no ulcers, esophagus normal. Nausea and vomiting improving but patient refusing to eat, no significant di arrhea. Will challenge with diet today and if tolerates will discharge for outpatient GI f will ollow-up. If fails, consider small bowel follow-through. --Pancreatic head lesion/ mass MRI abdomen: 2.1 cm cystic lesion in the uncinate process of the pancreas. Given its size, guidelines recommend repeat imaging every 6 months for 2 years and then every year for 2 years to determine stability over time. GI consulted, MRI abdomen suggestive for simple cyst The patient will need surveillance MRIs as an outpatient (or, EUS with FNA for staging; both acceptable). Per GI No further inpatient workup. She will follow up with GI as outpatient. --Leukocytosis likely reactive --Urine cultures grew skin isi No evidence of sepsis, afebrile with borderline WBC Discontinue empiric antibiotics --KYLE, vasomotor nephropathy, Cr 4.3 on admission with metabolic acidosis Improved with hydration and bicarb drip, creatinine 1.5 today Nephrology consulted and following --Mild hyponatremia and hypochloremia Improved with normal saline --DM type 2, hemoglobin A1c 6.1 hold home meds given compromised renal function cont SSI for now --morbid obesity, s/p gastric bypass surgery Dietary recommendation when clinically more stable --Recent fall after tripping, 2 weeks ago Healing scab, pretibial without evidence of infection --DVT prophylaxis Heparin for DVT prophylaxis Discharge disposition: Patient refusing to eat, will challenge with regular diet this evening and if tolerates will discharge in the morning. If fails, consider small bowel follow-through. Discussed with patient and the nursing staff. History Interval history: Patient vomited yesterday after breakfast and then declining to eat since. Patient also anorexic. No diarrhea. Denies abdominal pains. She is eager to go home. Afebrile. Hospitalist Physical - Constitutional Vitals: Temp Pulse Resp BP Pulse Ox 97.7 F 125 H 18 182/104 100 01/30/21 11:11 01/30/21 11:11 01/30/21 11:11 01/30/21 11:11 01/30/21 11:11 General appearance: Present: no acute distress, obese - EENT Eyes: Present: PERRL, EOM intact ENT: clear oral mucosa - Neck Neck: Present: supple - Respiratory Respiratory effort: normal Respiratory: bilateral: CTA - Cardiovascular Rhythm: regular - Extremities Extremities: No edema - Abdominal General gastrointestinal: soft, non-tender, normal bowel sounds - Integumentary Integumentary: Absent: rash - Psychiatric Psychiatric: appropriate mood/affect - Neurologic Neurologic: no focal deficits Results - Labs CBC & Chem 7: 01/30/21 09:28 01/30/21 09:28 Labs: Laboratory Last Values WBC 7.3 K/mm3 (4.5-11.0) 01/30/21 09:28 RBC 3.41 M/mm3 (3.65-5.03) L 01/30/21 09:28 Hgb 11.0 gm/dl (10.1-14.3) 01/30/21 09:28 Hct 33.3 % (30.3-42.9) 01/30/21 09:28 MCV 98 fl (79-97) H 01/30/21 09:28 MCH 32 pg (28-32) 01/30/21 09:28 MCHC 33 % (30-34) 01/30/21 09:28 RDW 18.6 % (13.2-15.2) H 01/30/21 09:28 Plt Count 198 K/mm3 (140-440) 01/30/21 09:28 Lymph % (Auto) 22.7 % (13.4-35.0) 01/30/21 09:28 [place] % (Auto) 7.9 % (0.0-7.3) H 01/30/21 09:28 Eos % (Auto) 1.1 % (0.0-4.3) 01/30/21 09:28 Baso % (Auto) 0.4 % (0.0-1.8) 01/30/21 09:28 Lymph # (Auto) 1.7 K/mm3 (1.2-5.4) 01/30/21 09:28 [place] # (Auto) 0.6 K/mm3 (0.0-0.8) 01/30/21 09:28 Eos # (Auto) 0.1 K/mm3 (0.0-0.4) 01/30/21 09:28 Baso # (Auto) 0.0 K/mm3 (0.0-0.1) 01/30/21 09:28 Seg Neutrophils % 67.9 % (40.0-70.0) 01/30/21 09:28 Seg Neutrophils # 5.0 K/mm3 (1.8-7.7) 01/30/21 09:28 Sodium 136 mmol/L (137-145) L 01/30/21 09:28 Potassium 3.9 mmol/L (3.6-5.0) 01/30/21 09:28 Chloride 100.2 mmol/L (98-107) 01/30/21 09:28 Carbon Dioxide 23 mmol/L (22-30) 01/30/21 09:28 Anion Gap 17 mmol/L 01/30/21 09:28 BUN 7 mg/dL (7-17) 01/30/21 09:28 Creatinine 1.5 mg/dL (0.6-1.2) H 01/30/21 09:28 Estimated GFR 43 ml/min 01/30/21 09:28 BUN/Creatinine Ratio 5 % 01/30/21 09:28 Glucose 108 mg/dL (65-100) H 01/30/21 09:28 POC Glucose 119 mg/dL (70-105) H 01/30/21 15:48 Hemoglobin A1c 6.1 % (4-6) H 01/27/21 07:55 Calcium 8.7 mg/dL (8.4-10.2) 01/30/21 09:28 Phosphorus 2.60 mg/dL (2.5-4.5) D 01/29/21 04:00 Magnesium 1.60 mg/dL (1.7-2.3) L 01/30/21 09:28 Total Bilirubin 0.70 mg/dL (0.1-1.2) 01/30/21 09:28 AST 10 units/L (5-40) 01/30/21 09:28 ALT 10 units/L (7-56) 01/30/21 09:28 Alkaline Phosphatase 89 units/L (35-129) 01/30/21 09:28 Lactate Dehydrogenase 189 units/L (91-180) H 01/30/21 09:28 C-Reactive Protein 4.70 mg/dL (0.00-1.30) H 01/30/21 09:28 Total Protein 5.7 g/dL (6.3-8.2) L 01/30/21 09:28 Albumin 2.9 g/dL (3.9-5) L 01/30/21 09:28 Albumin/Globulin Ratio 1.0 % 01/30/21 09:28 Lipase 28 units/L (13-60) 01/27/21 07:55 CA 19-9 Antigen 30 U/mL (<34) 01/25/21 07:15 Urine Color Yellow (Yellow) 01/24/21 Unknown Urine Turbidity Cloudy (Clear) 01/24/21 Unknown Urine pH 5.0 (5.0-7.0) 01/24/21 Unknown Ur Specific [place] 1.020 (1.003-1.030) 01/24/21 Unknown Urine Protein 30 mg/dl mg/dL (Negative) 01/24/21 Unknown Urine Glucose (UA) 50 mg/dL (Negative) 01/24/21 Unknown Urine Ketones Tr mg/dL (Negative) 01/24/21 Unknown Urine Blood Neg (Negative) 01/24/21 Unknown Urine Nitrite Neg (Negative) 01/24/21 Unknown Urine Bilirubin Neg (Negative) 01/24/21 Unknown Urine Urobilinogen < 2.0 mg/dL (<2.0) 01/24/21 Unknown Ur Leukocyte Esterase Sm (Negative) 01/24/21 Unknown Urine WBC (Auto) 14.0 /HPF (0.0-6.0) H 01/24/21 Unknown Urine RBC (Auto) 6.0 /HPF (0.0-6.0) 01/24/21 Unknown U Epithel Cells (Auto) 28.0 /HPF (0-13.0) H 01/24/21 Unknown Urine Creatinine 187.7 mg/dL (0.1-20.0) H 01/26/21 03:15 Protein/Creatinin Ratio 0.10 01/26/21 03:15 Urine Sodium 44 mmol/L 01/26/21 03:15 Urine Total Protein 18 mg/dL (5-11.8) H 01/26/21 03:15 Garcia/IV: Voiding Method Toilet Active Medications - Current Medications Current Medications: Generic Name Dose Route Start Last Admin Trade Name Freq PRN Reason Stop Dose Admin Acetaminophen 650 mg 01/24/21 09:02 Acetaminophen 325 Mg Tab PO Q4H PRN Pain MILD(1-3)/Fever >100.5/YEH Bupropion HCl 300 mg 01/28/21 14:00 01/30/21 11:02 Bupropion Xl 150 Mg Tab PO 300 mg QDAY NICHOLAS Administration Heparin Sodium (Porcine) 5,000 unit 01/24/21 14:00 01/30/21 05:52 Heparin 5,000 Unit/1 Ml Vial SUB-Q 5,000 unit Q8HR NICHOLAS Administration Hydralazine HCl 5 mg 01/24/21 09:11 Hydralazine 20 Mg/1 Ml Inj IV Q30MIN PRN Hypertension Potassium Chloride 10 meq/ 1,005 mls @ 100 mls/hr 01/29/21 09:00 01/29/21 10:15 Sodium Chloride IV 100 mls/hr DIRECT NICHOLAS Administration Insulin Human Regular 0 units 01/24/21 16:30 01/30/21 12:52 Insulin Regular, Human 100 Units/1 Ml SUB-Q Not Given ACHS NICHOLAS Protocol Metoclopramide HCl 5 mg 01/24/21 15:00 01/30/21 12:40 Metoclopramide 10 Mg/2 Ml Inj IV 5 mg Q6H PRN Administration Nausea And Vomiting Ondansetron HCl 4 mg 01/24/21 09:02 01/27/21 11:48 Ondansetron 4 Mg/2 Ml Inj IV 4 mg Q8H PRN Administration Nausea And Vomiting Pantoprazole Sodium 40 mg 01/24/21 17:00 01/30/21 12:41 Pantoprazole 40 Mg Inj IV 40 mg QDAY NICHOLAS Administration
[2021-01-31] MEDS: HEPARIN 5,000 UNIT/1 ML VIAL SUB-Q SCH ×3 (05:37→23:34)
[2021-01-31] MEDS: INSULIN REGULAR, HUMAN 100 UNITS/1 ML SUB-Q SCH ×4 (09:00→23:28)
[2021-01-31] MEDS: buPROPion XL 150 MG TAB PO SCH (10:07)
[2021-01-31] MEDS: PANTOPRAZOLE 40 MG INJ IV SCH (10:07)
--- NOTE | 2021-01-31 10:30 | Gastroenterology Progress Note ---
Assessment and Plan - Patient Problems (1) Pancreas cyst Current Visit: Yes Status: Acute Plan to address problem: -The patient will need surveillance MRIs as an outpatient (or, EUS with FNA for staging; both acceptable). - No further inpatient workup. (2) Nausea & vomiting Current Visit: Yes Status: Acute Qualifiers: Vomiting type: unspecified Vomiting Intractability: intractable Qualified Code(s): R11.2 - Nausea with vomiting, unspecified Plan to address problem: - Given the chronic DM, this may be mild gastroparesis; also possible is mild pancreatitis from compression from the cyst. No signs of obstruction on CT scan, but partial SBO/GOO from surgical adhesions possible. - EGD/head CT unremarkable; unable to tolerate SBFT. - Lipase and hgb a1C now acceptable, and KYLE has almost resolved. - Now tolerating a regular diet; OK to discharge home from our standpoint. If recurrent symptoms, needs a HIDA scan. We will sign off; please call if needed. Subjective Date of service: 01/31/21 Principal diagnosis: N/V Interval history: The patient is tolerating her PO diet without severe pain or N/V. Denies CP or SOB. Objective - Constitutional Vitals: Temp Pulse Resp BP Pulse Ox 97.9 F 94 H 20 126/82 99 01/31/21 05:52 01/31/21 05:52 01/31/21 05:52 01/31/21 05:52 01/31/21 05:52 General appearance: no acute distress - EENT Eyes: PERRL, EOM intact - Respiratory Respiratory effort: normal Respiratory: bilateral: CTA - Cardiovascular Rhythm: regular Heart Sounds: Present: S1 & S2 - Gastrointestinal General gastrointestinal: Present: soft, non-tender, non-distended - Labs CBC & Chem 7: 01/30/21 09:28 01/30/21 09:28 Labs: Laboratory Results - last 24 hr 01/30/21 01/30/21 01/30/21 09:28 11:07 15:48 Sodium 136 L Potassium 3.9 Chloride 100.2 Carbon Dioxide 23 Anion Gap 17 BUN 7 Creatinine 1.5 H Estimated GFR 43 BUN/Creatinine Ratio 5 Glucose 108 H POC Glucose 164 H 119 H Calcium 8.7 Magnesium 1.60 L Total Bilirubin 0.70 AST 10 ALT 10 Alkaline Phosphatase 89 Lactate Dehydrogenase 189 H C-Reactive Protein 4.70 H Total Protein 5.7 L Albumin 2.9 L Albumin/Globulin Ratio 1.0 01/30/21 01/31/21 21:17 07:48 Sodium Potassium Chloride Carbon Dioxide Anion Gap BUN Creatinine Estimated GFR BUN/Creatinine Ratio Glucose POC Glucose 107 H 99 Calcium Magnesium Total Bilirubin AST ALT Alkaline Phosphatase Lactate Dehydrogenase C-Reactive Protein Total Protein Albumin Albumin/Globulin Ratio
[2021-01-31] MEDS: POTASSIUM CHLORIDE 10 MEQ in SODIUM CHLORIDE 0.9% 1000 ML 1,000 ML IV SCH ×2 (11:53)
[2021-02-01] MEDS: HEPARIN 5,000 UNIT/1 ML VIAL SUB-Q SCH (06:53)
[2021-02-01] MEDS: INSULIN REGULAR, HUMAN 100 UNITS/1 ML SUB-Q SCH ×2 (07:30→11:30)
[2021-02-01] MEDS: buPROPion XL 150 MG TAB PO SCH (08:59)
[2021-02-01] MEDS: PANTOPRAZOLE 40 MG INJ IV SCH (09:04)
--- NOTE | 2021-02-01 09:31 | Electrocardiograph Report ---
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
[2021-02-01 12:45] VITALS: BP 131/84
--- NOTE | 2021-02-01 13:34 | Discharge Summary ---
Providers - Providers Date of Admission: 01/24/21 15:08 Date of discharge: 02/01/21 Attending physician: ELIEZER ALMARAZ 01/24/21 09:05 Consult to Physician [CONS] Routine Comment: Consulting Provider: JULISSA WHIPPLE Physician Instructions: Reason For Exam: KYLE 01/24/21 12:35 Consult to Physician [CONS] Routine Comment: Consulting Provider: YOAN HOWELL Physician Instructions: Reason For Exam: pancreatic head lesion Primary care physician: [facility] N[facility]SE Hospitalization Condition: Critical Hospital course: 60-year-old female with h/o HTN, DM type presents emergency room with complaints of nausea vomiting and dry heaves has been going on for 3 weeks. Patient states that she is having difficulty holding down food but she can tolerates water. Patient denies abdominal pain. Patient denies bloody vomitus, diarrhea, fever and chills. Patient also denies chest pain and shortness of breath. Patient states that she is fully vaccinated against Covid. CT abdomen in the ER showed possible pancreatic head lesion --Intractable nausea and vomiting Etiology unclear. Patient has had gastric bypass, h/o DM, well controlled. Denies history of gastroparesis or similar episodes in the past. Would treat empirically for possible gastroparesis lipase slightly elevated on admission. COVID-19 PCR test negative. Was unable to follow oral contrast for SBFT As needed antiemetics, avoid narcotics EGD 01/29/2021 was unremarkable, few jacobo were remaining in the stomach pouch, no ulcers, esophagus normal. Nausea and vomiting improving but patient refusing to eat, no significant diarrhea. Will challenge with diet today and if tolerates will discharge for outpatient GI f will ollow-up. If fails, consider small bowel follow-through. Vomiting is resolved and nausea is resolved Patient was discharged on PPIs --Pancreatic head lesion/ mass MRI abdomen: 2.1 cm cystic lesion in the uncinate process of the pancreas. Given its size, guidelines recommend repeat imaging every 6 months for 2 years and then every year for 2 years to determine stability over time. GI consulted, MRI abdomen suggestive for simple cyst The patient will need surveillance MRIs as an outpatient (or, EUS with FNA for staging; both acceptable). Per GI No further inpatient workup. She will follow up with GI as outpatient. --Leukocytosis likely reactive --Urine cultures grew skin isi No evidence of sepsis, afebrile with borderline WBC Discontinue empiric antibiotics --KYLE, vasomotor nephropathy, Cr 4.3 on admission with metabolic acidosis KYLE improved At the time of admission BUN/creatinine was 59/4.3---at the time of discharge BUN/creatinine came down to 20 and/1.7 --Mild hyponatremia and hypochloremia Improved with normal saline --DM type 2, hemoglobin A1c 6.1 hold home meds given compromised renal function cont SSI for now --morbid obesity, s/p gastric bypass surgery Dietary recommendation when clinically more stable Need to lose weight Patient counseled --Recent fall after tripping, 2 weeks ago Need to walk every day --DVT prophylaxis Heparin for DVT prophylaxis Had extensive discussion with the patient and the son was sitting at bedside. Patient understands her diagnosis and prognosis Patient did get CAT scan of the abdomen including pancreas every 6 months for 2 years Disposition: 01 HOME / SELF CARE / HOMELESS Final Discharge Diagnosis (Prints w/discharge instructions): KYLE. Intractable nausea and vomiting. Hypokalemia. Hyponatremia. Pancreatic mass Time spent for discharge: 30 minutes Core Measure Documentation - Palliative Care Palliative Care/ Comfort Measures: Not Applicable - Core Measures Any of the following diagnoses?: none Exam - Constitutional Vitals: Temp Pulse Resp BP Pulse Ox 97.6 F 89 20 131/84 99 02/01/21 12:43 02/01/21 12:43 02/01/21 12:43 02/01/21 12:43 02/01/21 12:43 General appearance: Present: no acute distress, well-nourished - EENT Eyes: Present: PERRL ENT: hearing intact, clear oral mucosa - Neck Neck: Present: supple, normal ROM - Respiratory Respiratory effort: normal Respiratory: bilateral: CTA - Cardiovascular Heart rate: 78 Rhythm: regular Heart Sounds: Present: S1 & S2. Absent: rub, click - Extremities Extremities: no ischemia, pulses intact, pulses symmetrical, No edema Peripheral Pulses: within normal limits - Abdominal General gastrointestinal: Present: soft, non-tender, non-distended, normal bowel sounds Female genitourinary: Present: normal - Integumentary Integumentary: Present: clear, warm, dry - Musculoskeletal Musculoskeletal: gait normal, strength equal bilaterally - Psychiatric Psychiatric: appropriate mood/affect, intact judgment & insight - Neurologic Neurologic: CNII-XII intact, moves all extremities - Allied Health Allied health notes reviewed: nursing, case management Plan Activity: no restrictions Diet: diabetic Follow up with: PRIMARY CAREMD [Primary Care Provider] - 3-5 Days YOAN HOWELL MD [Staff Physician] - 7 Days
== END 2021-02-01 14:21 | disposition home or self-care (01) | DRG 871 ==
LOC: ED 23:41 → 3A 01-24 02:47 → OBSVTOIN 01-24 15:08 → 3A 01-31 09:01
PROVIDERS: ADMIT Internal Medicine Geriatric Medicine; ATTEND Internal Medicine
PROC: 0DJ08ZZ Inspection of Upper Intestinal Tract, Via Natural or Artificial Opening Endoscopic (ICD-10-PCS; principal; 2021-01-29)
DX: A41.9 Sepsis, unspecified organism (principal); N17.0 Acute kidney failure with tubular necrosis; N39.0 Urinary tract infection, site not specified; E87.1 Hypo-osmolality and hyponatremia; K86.2 Cyst of pancreas; I10 Essential (primary) hypertension; E11.9 Type 2 diabetes mellitus without complications; E87.6 Hypokalemia; E66.01 Morbid (severe) obesity due to excess calories; E87.8 Other disorders of electrolyte and fluid balance, not elsewhere classified; Z82.49 Family history of ischemic heart disease and other diseases of the circulatory system; Z68.39 Body mass index [BMI] 39.0-39.9, adult; Z20.822 Contact with and (suspected) exposure to COVID-19
CPT/HCPCS: 36415; 70460; 74018; 74150; 74181; 80048; 80053; 81001; 82570; 82962; 83036; 83615; 83690; 83735; 84100; 84156; 84300; 85025; 86140; 86301; 87086; 93005; G0378; J3490; J7120; Q0162; Q9967; C9113; J0696; J1644; J1815; J2270; J2405; J2704; J2765; J3475; J3480; J7030; J7050; Q9963; U0003